=== PATIENT | female | born 1995 | race African-American/Black ===

== ENCOUNTER 2021-09-27 16:30 | Emergency (ER) | payer OTHER ==
--- NOTE | 2021-09-27 17:34 | XRAY Report ---
PROCEDURE: Chest 2 View X-Ray INDICATIONS: chest pain TECHNIQUE: 2 view(s) of the chest. COMPARISON: None. FINDINGS: Surgical changes and devices: None. Lungs and pleura: No pleural effusions or pneumothorax. Lungs are clear. Mediastinum: Mediastinal contours are normal. Heart size is near the upper limits of normal for por table technique. Bones and chest wall: No suspicious bony abnormalities. Soft tissues appear unremarkable. IMPRESSION: No acute cardiopulmonary process is seen. Reviewed by: Jesus Moss MD on 09/27/2021 4:33 PM [facility] Approved by: Jesus Moss MD on 09/27/2021 4:33 PM [facility] Station ID: [id number]
--- NOTE | 2021-09-27 18:10 | ED Physician Documentation ---
PD HPI CHEST PAIN - Stated complaint Stated Complaint: DIZZY/CHEST TIGHT/SOA/HEADACHE - Chief complaint Chief Complaint: Cardiac - History obtained from History obtained from: Patient - Additional information Additional information: Healthy 25-year-old woman got Covid last year and ever since she has had on and off chest pain. In a given week she probably has it half the days. It is a dull sternal pressure that is nonradiating. It is worse with walking but not with deep breathing. There is no association with eating. It was worse today, but otherwise the sensation was the same. She called the nurse advice line who advised evaluation in the emergency department. She denies recent travel, control use, history of DVT or PE, pedal edema or calf pain, possibility of current , personal or family history of ACS, cough or hemoptysis. 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 HEENT: None Psych: None Musculoskeletal: None Derm: Psoriasis Other Past Medical History: latent TB - Past Surgical History Past Surgical History: Yes HEENT: Tonsil/Adenoidectomy - Present Medications Home Medications: Ambulatory Orders Medication Instructions Recorded Confirmed Albuterol Sulfate [Proair Hfa 1 - 2 puffs INH Q4H PRN 09/27/21 09/27/21 Inhaler] - Allergies Allergies/Adverse Reactions: Allergies Allergy/AdvReac Type Severity Reaction Status Date / Time No Known Drug Allergies Allergy Verified 09/27/21 16:35 - Social History Does the pt smoke?: No Smoking Status: Former smoker Does the pt drink ETOH?: Yes Does the pt have substance abuse?: No - Immunizations Immunizations are current?: Yes PD ED PE NORMAL - Vitals Vital signs reviewed: Yes - General General: Alert and oriented X 3, No acute distress - HEENT HEENT: PERRL, EOMI - Neck Neck: Supple, no meningeal sign, No bony TTP - Cardiac Cardiac: RRR, No murmur - Respiratory Respiratory: No respiratory distress, Clear bilaterally - Abdomen Abdomen: Non tender - Back Back: No CVA TTP, No spinal TTP - Derm Derm: Normal color, Warm and dry - Extremities Extremities: No edema, No calf tenderness / cord - Neuro Neuro: Alert and oriented X 3, Normal speech Results - Vitals Vitals: Vital Signs - 24 hr 09/27/21 16:35 Temperature 36.2 C L Heart Rate 82 Respiratory 18 Rate Blood Pressure 134/85 H O2 Saturation 100 Oxygen O2 Source Room air - EKG (time done) 1638 Rate: Rate (enter#) (88) Rhythm: NSR [place]: Normal Intervals: Normal HI QRS: Normal Ischemia: Non specific changes. No: ST elevation c/w ischemia, ST depression - Labs Labs: Laboratory Tests 09/27/21 16:58 Troponin I High Sens < 2.3 L - Rads (name of study) 2 view chest x-ray is unremarkable Radiology: EMP read contemporaneously PD MEDICAL DECISION MAKING - ED course ED course: PE RC 0, heart 0 Departure - Departure Disposition: 01 Home, Self Care Clinical Impression: Atypical chest pain Condition: Good Record reviewed to determine appropriate education?: Yes Instructions: ED Chest Pain Atypical Unkn Cause Comments: EKG, troponin, chest x-ray all without evidence of serious pathology. Recommend with [place]. Return if worsening.
[2021-09-27 18:24] VITALS: BP 128/88
== END 2021-09-27 18:23 | disposition home or self-care (01) ==
LOC: ED 16:30
DX: R07.89 Other chest pain (principal); Z87.891 Personal history of nicotine dependence
CPT/HCPCS: 36415; 84484; 93005; 99283; 99284

== ENCOUNTER 2022-01-25 12:46 | Emergency (ER) | payer OTHER ==
--- NOTE | 2022-01-25 13:30 | ED Physician Documentation ---
PD HPI FOCAL NEURO - Stated complaint Stated Complaint: TUNNEL VISION IN LT EYE - Chief complaint Chief Complaint: Heent - History obtained from History obtained from: Patient - Additional information Additional information: 26yo female, [place]. No sig PMHx except preeclampsia. Starting 1 month ago developed moderate, 5/10 headache, left sided, neck radiating to head. Constant. Slight improvement with ibuprofen. 3 weeks of left eye tunnel vision. Central vision is maintained, blurry going out and becomes black. Also bilateral blacking out of vision with position chanes x 2 weeks and ppulsatile tinnitus x 2 weeks. Went to [place] yesterday and had left papilledema. They started acetazolamide at 125mg qday, and feeling same today. Review of Systems Ten Systems: 10 systems reviewed and negative Constitutional: denies: Fever, Chills Eyes: reports: Loss of vision, Decreased vision. 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 HEENT: None Psych: None Musculoskeletal: None Derm: Psoriasis - Past Surgical History Past Surgical History: Yes HEENT: Tonsil/Adenoidectomy - Present Medications Home Medications: Ambulatory Orders Medication Instructions Recorded Confirmed Albuterol Sulfate [Proair Hfa 1 - 2 puffs INH Q4H PRN 09/27/21 09/27/21 Inhaler] acetaZOLAMIDE [Diamox] 250 mg PO BID #60 tablet 01/25/22 - Allergies Allergies/Adverse Reactions: Allergies Allergy/AdvReac Type Severity Reaction Status Date / Time No Known Drug Allergies Allergy Verified 01/25/22 12:55 - Social History Does the pt smoke?: No Smoking Status: Never smoker Does the pt drink ETOH?: Yes Does the pt have substance abuse?: No - Immunizations Immunizations are current?: Yes PD ED PE NORMAL - Vitals Vital signs reviewed: Yes - General General: Alert and oriented X 3, No acute distress - HEENT HEENT: PERRL, EOMI - Neck Neck: Supple, no meningeal sign, No bony TTP - Cardiac Cardiac: RRR, No murmur - Respiratory Respiratory: No respiratory distress, Clear bilaterally - Abdomen Abdomen: Normal bowel sounds, Soft, Non tender - Back Back: No CVA TTP, No spinal TTP - Derm Derm: Normal color, Warm and dry - Extremities Extremities: No edema, No calf tenderness / cord - Neuro Neuro: Alert and oriented X 3, cabin worker 2-12 intact, No motor deficit, No sensory deficit, Normal speech Eye Opening: Spontaneous Motor: Obeys Commands Verbal: Oriented GCS Score: 15 - Psych Psych: Normal mood, Normal affect Results - Vitals Vitals: Vital Signs - 24 hr 01/25/22 01/25/22 01/25/22 12:49 15:00 17:00 Temperature 36.0 C L 36.6 C 36.7 C Heart Rate 77 63 75 Respiratory 16 16 16 Rate Blood Pressure 135/83 H 105/59 L 108/69 O2 Saturation 100 100 98 01/25/22 18:03 Temperature 36.6 C Heart Rate 80 Respiratory 16 Rate Blood Pressure 114/68 O2 Saturation 99 Oxygen O2 Source Room air - Labs Labs: Microbiology 01/25/22 14:15 Gram Stain - Final Cerebral Spinal Fluid CSF Culture - Preliminary CULTURE IN PROGRESS. RESULTS TO FOLLOW. Laboratory Tests 01/25/22 01/25/22 01/25/22 13:45 13:45 14:15 WBC 9.8 RBC 4.73 Hgb 12.8 Hct 40.4 MCV 85.4 MCH 27.1 MCHC 31.7 L RDW 14.0 Plt Count 306 MPV 9.3 Neut # (Auto) 4.2 Lymph # (Auto) 4.1 H Irwin # (Auto) 1.0 Eos # (Auto) 0.4 Baso # (Auto) 0.1 Absolute Nucleated RBC 0.00 Nucleated RBC % 0.0 Sodium 138 Potassium 4.0 Chloride 105 Carbon Dioxide 22 Anion Gap 11.0 BUN 16 Creatinine 1.1 H Estimated GFR (MDRD) 72 L Glucose 88 Calcium 9.6 CSF Color COLORLESS CSF Clarity CLEAR Xanthrochromic ABSENT CSF WBC 2 CSF RBC 3 H CSF Cell Count Tube # CSF TUBE# 3 CSF Glucose 61 CSF Total Protein 23 - Rads (name of study) MRI and MRV of the brain are normal Radiology: Final report received, EMP read contemporaneously Procedures - Lumbar Puncture Position: Laying left side Location: L3-L4 Anesthesia: Local lidocaine CSF: Clear (12ml CSF) Pressures: Opening Pressure (34 cm H2O), Closing Pressure (18cm H2O) Other: Sterile prep and drape, Patient tolerated well PD MEDICAL DECISION MAKING - ED course ED course: 26-year-old woman presents for work-up of presumed intracranial hypertension. MRI and MRV were normal. LP done with opening pressure of 35 and with about 12 mL of fluid out headache much better with a closing pressure of 18. Discussed case by phone with Dr. Ventura, Neurology at [facility] who recommends increasing Ricki tazolamide to 250 twice a day pending follow-up and could even go to 500 twice a day. She does need to follow-up with neurology and ophthalmology for assessment of visual cordova. Departure - Departure Disposition: 01 Home, Self Care Clinical Impression: Idiopathic intracranial hypertension Condition: Good Record reviewed to determine appropriate education?: Yes Prescriptions: acetaZOLAMIDE [Diamox] 250 mg PO BID #60 tablet Comments: You were seen today for work-up of idiopathic intracranial hypertension. The MRI and MRV of your brain were normal. We did a spinal tap, and the opening pressure was 35 which is high consistent with a diagnosis. After we removed about 12 mL of fluid the closing pressure was 18 which is back in the normal range. The spinal fluid and labs were normal. I discussed her case by phone with Dr. Ventura a rate neurologist at [facility] who recommended we increase the acetazolamide to 250 mg twice a day. I wrote a prescription and sent it to [facility] in [place]. You can just take 2 tablets of the 1 you have twice a day now until that runs out. [place] Ventura recommended formal referral to neurology but also op hthalmology (not optometry) for assessment of visual cordova. Forms: Activity restrictions Discharge Date/Time: 01/25/22 18:04
[2022-01-25 13:53] LABS: BASOPHILS # (AUTO) 0.1 10^3/uL (0.0-0.1); BASOPHILS % (AUTO) 0.8 %; EOSINOPHILS # (AUTO) 0.4 10^3/uL (0.0-0.7); EOSINOPHILS % (AUTO) 3.9 %; HCT - HEMATOCRIT 40.4 % (37.0-47.0); HGB - HEMOGLOBIN 12.8 g/dL (12.0-16.0); LYMPHOCYTES # (AUTO) 4.1 10^3/uL (1.5-3.5); LYMPHOCYTES % (AUTO) 41.4 %; MEAN CORPUSCULAR HEMOGLOBIN 27.1 pg (27.0-31.0); MEAN CORPUSCULAR HGB CONC 31.7 g/dL (32.0-36.0); MEAN CORPUSCULAR VOLUME 85.4 fL (81.0-99.0); MEAN PLATELET VOLUME 9.3 fL (7.9-10.8); MONOCYTES % (AUTO) 10.5 %; NEUTROPHILS # (AUTO) 4.2 10^3/uL (1.5-6.6); NEUTROPHILS % (AUTO) 43.2 %; PLT - PLATELET COUNT 306 10^3/uL (130-450); RED BLOOD COUNT 4.73 10^6/uL (4.20-5.40); WHITE BLOOD COUNT 9.8 x10^3/uL (4.8-10.8)
[2022-01-25 14:09] LABS: CALCIUM 9.6 mg/dL (8.5-10.3); CREATININE 1.1 mg/dL (0.4-1.0)
[2022-01-25 15:01] LABS: CSF - GLUCOSE 61 mg/dL (45-70); TOTAL PROTEIN,CSF 23 mg/dL (15-45)
[2022-01-25 15:03] LABS: CLARITY,CSF CLEAR (CLEAR); COLOR,CSF COLORLESS (COLORLESS); CSF TUBE # CSF TUBE# 3; CSF XANTHOCHROMIA ABSENT (ABSENT); RED BLOOD CELL,CSF 3 /mm^3 (0-1); WHITE BLOOD CELL,CSF 2 /mm^3 (0-5)
[2022-01-25] MEDS ORDERED: KETOROLAC 15 MG/ML VIAL IVP STA (15:23)
--- NOTE | 2022-01-25 17:04 | MRI Report ---
PROCEDURE: MRV-Brain Venous W/O INDICATIONS: headache/papilledema TECHNIQUE: Sagittal T1 spin echo through the brain. Coronal 2D [id number] MR venogram, with 3-dimensional m kbbkyk-iglxbmtev-zbkhueuhjp (MIP) reformats of the intracranial veins then performed. COMPARISON: MR brain 01/25/2022 FINDINGS: Image quality: Excellent. Veins: Sagittal, straight, transverse, and sigmoid sinuses all appear patent. Brain: Limited images through the brain parenchyma show no intracranial bleeds or mass effects. IMPRESSION: Venous system is patent. Reviewed by: Alanna Sanchez MD on 01/25/2022 5:02 PM PDT Approved by: Alanna Sanchez MD on 01/25/2022 5:02 PM PDT Station ID: [id number]
--- NOTE | 2022-01-25 17:04 | MRI Report ---
PROCEDURE: Brain W/O INDICATIONS: headache/papilledema TECHNIQUE: Noncontrast axial T1 spin echo, axial T2 fast spin echo, sagittal and axial FLAIR, coronal T2 fast sp in echo, axial gradient echo, axial diffusion and ADC through the brain. COMPARISON: MRV 01/25/2022. FINDINGS: Image quality: Excellent. CSF Spaces: Basal cisterns are patent. No extra-axial fluid collections. Ventricles are normal in size and shape. Brain: No intracranial masses or hemorrhage. [place]/white matter interface is normal. Brainstem appe ars normal. Diffusion-weighted images demonstrate no acute ischemic insult. No chronic ischemic ins ults. Normal intravascular flow voids are present. Skull and face: Calvarium has normal marrow signal. Orbits appear normal. Sinuses: Sinuses demonstrate minimal mucosal thickening. IMPRESSION: 1. No acute intracranial process. Reviewed by: Alanna Sanchez MD on 01/25/2022 5:02 PM PDT Approved by: Alanna Sanchez MD on 01/25/2022 5:02 PM PDT Station ID: [id number]
[2022-01-25 18:04] VITALS: BP 114/68
== END 2022-01-25 18:04 | disposition home or self-care (01) ==
LOC: ED 12:46
DX: G93.2 Benign intracranial hypertension (principal)
CPT/HCPCS: 36415; 62270; 80048; 82945; 84157; 85025; 87070; 87205; 89051; 99285

== ENCOUNTER 2022-01-31 18:23 | Emergency (ER) | payer OTHER ==
[2022-01-31] MEDS ORDERED: SODIUM CHLORIDE 0.9% 1,000 ML IV STA (18:53)
[2022-01-31] MEDS ORDERED: KETOROLAC 30 MG/ML VIAL IVP STA (18:53)
[2022-01-31 19:05] LABS: BASOPHILS # (AUTO) 0.1 10^3/uL (0.0-0.1); BASOPHILS % (AUTO) 0.8 %; EOSINOPHILS # (AUTO) 0.4 10^3/uL (0.0-0.7); EOSINOPHILS % (AUTO) 4.6 %; HGB - HEMOGLOBIN 12.9 g/dL (12.0-16.0); LYMPHOCYTES # (AUTO) 4.2 10^3/uL (1.5-3.5); LYMPHOCYTES % (AUTO) 43.5 %; MEAN CORPUSCULAR HEMOGLOBIN 27.2 pg (27.0-31.0); MEAN CORPUSCULAR HGB CONC 32.3 g/dL (32.0-36.0); MEAN CORPUSCULAR VOLUME 84.4 fL (81.0-99.0); MEAN PLATELET VOLUME 9.1 fL (7.9-10.8); MONOCYTES # (AUTO) 0.6 10^3/uL (0.0-1.0); MONOCYTES % (AUTO) 6.1 %; NEUTROPHILS # (AUTO) 4.3 10^3/uL (1.5-6.6); NEUTROPHILS % (AUTO) 44.9 %; PLT - PLATELET COUNT 329 10^3/uL (130-450); RED BLOOD COUNT 4.74 10^6/uL (4.20-5.40); RED CELL DISTRIBUTION WIDTH 14.1 % (12.0-15.0); WHITE BLOOD COUNT 9.6 x10^3/uL (4.8-10.8)
--- NOTE | 2022-01-31 19:08 | ED Physician Documentation ---
History of Present Illness - Stated complaint Stated Complaint: HEADACHE,BLURRED VISION - Chief complaint Chief Complaint: Neuro - History obtained from History obtained from: Patient - History of Present Illness Timing: Today Pain level max: 5 Pain level now: 3 - Additonal information Additional information: Patient is a 26-year-old female with a history of intracranial hypertension, recently started on acetazolamide. They increased her acetazolamide to 750 mg by mouth twice daily yesterday. Today she states she feels dizzy when she stands up, has a mild headache and feels like she is having confusion and difficulty walking. Nothing makes it better or worse. No fevers. No trauma. Review of Systems Ten Systems: 10 systems reviewed and negative Constitutional: denies: Fever, Chills Ears: denies: Ear pain Nose: denies: Rhinorrhea / runny nose, Congestion Throat: denies: Sore throat GI: denies: Nausea, Vomiting, Diarrhea Skin: denies: Rash Musculoskeletal: denies: Neck pain, Back pain Neurologic: reports: Generalized weakness, Confused. 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 HEENT: None Psych: None Musculoskeletal: None Derm: Psoriasis - Past Surgical History Past Surgical History: Yes HEENT: Tonsil/Adenoidectomy - Present Medications Home Medications: Ambulatory Orders Medication Instructions Recorded Confirmed Albuterol Sulfate [Proair Hfa 1 - 2 puffs INH Q4H PRN 09/27/21 01/31/22 Inhaler] acetaZOLAMIDE [Diamox] 750 mg PO BID 01/31/22 01/31/22 - Allergies Allergies/Adverse Reactions: Allergies Allergy/AdvReac Type Severity Reaction Status Date / Time No Known Drug Allergies Allergy Verified 01/31/22 18:27 - Social History Does the pt smoke?: No Smoking Status: Never smoker Does the pt drink ETOH?: Yes Does the pt have substance abuse?: No - Immunizations Immunizations are current?: Yes PD ED PE NORMAL - Vitals Vital signs reviewed: Yes - General General: Alert and oriented X 3, No acute distress, Well developed/nourished - HEENT HEENT: Atraumatic, PERRL, Moist mucous membranes, Pharynx benign - Neck Neck: Supple, no meningeal sign - Cardiac Cardiac: RRR, Strong equal pulses - Respiratory Respiratory: No respiratory distress, Clear bilaterally - Abdomen Abdomen: Soft, Non tender, Non distended - Derm Derm: Warm and dry - Extremities Extremities: No edema, No calf tenderness / cord - Neuro Neuro: Alert and oriented X 3, fruit checker 2-12 intact, No motor deficit, No sensory deficit, Normal speech Eye Opening: Spontaneous Motor: Obeys Commands Verbal: Oriented GCS Score: 15 - Psych Psych: Normal mood, Normal affect Results - Vitals Vitals: Vital Signs - 24 hr 01/31/22 01/31/22 01/31/22 18:27 18:33 20:11 Temperature 36.8 C 36.6 C 36.6 C Heart Rate 71 64 61 Respiratory 16 16 16 Rate Blood Pressure 128/88 H 123/85 H 121/80 O2 Saturation 99 100 100 Oxygen O2 Source Room air - Labs Labs: Laboratory Tests 01/31/22 01/31/22 19:00 19:00 WBC 9.6 RBC 4.74 Hgb 12.9 Hct 40.0 MCV 84.4 MCH 27.2 MCHC 32.3 RDW 14.1 Plt Count 329 MPV 9.1 Neut # (Auto) 4.3 Lymph # (Auto) 4.2 H Drew # (Auto) 0.6 Eos # (Auto) 0.4 Baso # (Auto) 0.1 Absolute Nucleated RBC 0.00 Nucleated RBC % 0.0 Sodium 136 Potassium 3.7 Chloride 106 Carbon Dioxide 20 L Anion Gap 10.0 BUN 20 Creatinine 1.1 H Estimated GFR (MDRD) 72 L Glucose 94 Calcium 8.9 Phosphorus 4.2 Magnesium 2.0 PD MEDICAL DECISION MAKING - ED course Complexity details: reviewed results, re-evaluated patient, considered differential, d/w patient ED course: No acute abnormalities currently. No electrolyte abnormalities. Feels better after Toradol and IV fluids. This could be a medication side effect as she is on a fairly high dose of acetazolamide. We will try decreasing the dose to see if it improves her symptoms. Ambulating well here. Headache resolved. We will have her follow-up with her neurologist and PCM for further care. No indication for repeat LP or imaging at this time. GCS 15. Patient counseled regarding signs and symptoms for which I believe and urgent re-evaluation would be necessary. Patient with good understanding of and agreement to plan and is comfortable going home at this time This document was made in part using voice recognition software. While efforts are made to proofread this document, sound alike and grammatical errors may occur. Departure - Departure Disposition: 01 Home, Self Care Clinical Impression: Medication side effect, Idiopathic intracranial hypertension Headache Qualifiers: Headache type: unspecified Headache chronicity pattern: acute headache Intractability: not intractable Qualified Code(s): R51.9 - Headache, unspecified Condition: Good Instructions: ED Cephalgia Unspecified Follow-Up: ANA NIELSON MD [Primary Care Provider] - Within 1 week Comments: Your symptoms may be due to the elevated dose of acetazolamide that you are on. Please decrease the dosage to 500 mg twice daily instead of 750 mg twice daily. Please contact your doctor tomorrow regarding your medications. Discharge Date/Time: 01/31/22 20:36
[2022-01-31 19:19] LABS: CALCIUM 8.9 mg/dL (8.5-10.3); CREATININE 1.1 mg/dL (0.4-1.0); PHOSPHORUS 4.2 mg/dL (2.5-4.6); POTASSIUM 3.7 mmol/L (3.5-5.0)
[2022-01-31 20:12] VITALS: BP 121/80
== END 2022-01-31 20:36 | disposition home or self-care (01) ==
LOC: ED 18:23
DX: R51.9 Headache, unspecified (principal); R42 Dizziness and giddiness; R41.0 Disorientation, unspecified; T50.2X5A Adverse effect of carbonic-anhydrase inhibitors, benzothiadiazides and other diuretics, initial encounter; G93.2 Benign intracranial hypertension
CPT/HCPCS: 36415; 80048; 83735; 84100; 85025; 96374; 99282

== ENCOUNTER 2022-02-22 11:26 | Outpatient (CLI) | payer OTHER | END 2022-02-22 11:27 | disposition EMS.NT | LOC: EMS 11:26 | DX: G43.909 Migraine, unspecified, not intractable, without status migrainosus (principal) ==

== ENCOUNTER 2022-03-21 09:28 | Outpatient (CLI) | payer OTHER ==
[2022-03-21] MEDS ORDERED: GADOBUTROL 10 MMOL/10 ML VIAL ONE (09:49)
[2022-03-21] MEDS ORDERED: GADOBUTROL 10 MMOL/10 ML VIAL IVP ONE (11:19)
--- NOTE | 2022-03-21 15:54 | MRI Report ---
PROCEDURE: Brain W/WO INDICATIONS: PAPILLEDEMA CONTRAST: IV CONTRAST: Gadavist ml: 9 TECHNIQUE: Noncontrast axial T1 spin echo, axial T2 fast spin echo, sagittal and axial FLAIR, coronal T2 fast sp in echo, axial gradient echo, axial diffusion and ADC through the brain. After the administration of contrast, axial and coronal T1 spin echo with fat saturation through the brain. COMPARISON: None. FINDINGS: There is a greater than expected volume of CSF within the bilateral optic nerve sheaths. There is mod erate flattening of the posterior globes. Subtle protrusion of the optic nerve heads indicate optic n erve edema. Mild enlargement of the sella turcica. Normal brain parenchymal signal intensity. No abnormal intracranial enhancement. Major intracranial v ascular flow related signal voids are maintained. No restricted diffusion. No unexpected intracranial susceptibility. IMPRESSION: Flattening of the posterior globes with increased CSF volume in the bilateral optic nerve sheaths estefany ng with subtle protrusion of the optic nerve heads. Findings are suggestive of idiopathic intracrania l hypertension. Reviewed by: Rosalino Lyle MD on 03/21/2022 3:53 PM PDT Approved by: Rosalino Lyle MD on 03/21/2022 3:53 PM PDT Station ID: [id number]
== END 2022-03-21 09:29 | disposition home or self-care (01) ==
LOC: DI 09:28
PROVIDERS: ATTEND Optometrist
DX: H47.10 Unspecified papilledema (principal); R94.02 Abnormal brain scan
CPT/HCPCS: 70553; A9585

== ENCOUNTER 2022-05-07 08:42 | Emergency (ER) | payer OTHER ==
[2022-05-07 09:36] LABS: BASOPHILS # (AUTO) 0.1 10^3/uL (0.0-0.1); EOSINOPHILS # (AUTO) 0.2 10^3/uL (0.0-0.7); EOSINOPHILS % (AUTO) 2.2 %; HCT - HEMATOCRIT 40.9 % (37.0-47.0); HGB - HEMOGLOBIN 13.3 g/dL (12.0-16.0); LYMPHOCYTES # (AUTO) 2.7 10^3/uL (1.5-3.5); LYMPHOCYTES % (AUTO) 25.9 %; MEAN CORPUSCULAR HEMOGLOBIN 27.8 pg (27.0-31.0); MEAN CORPUSCULAR HGB CONC 32.5 g/dL (32.0-36.0); MEAN CORPUSCULAR VOLUME 85.6 fL (81.0-99.0); MEAN PLATELET VOLUME 8.9 fL (7.9-10.8); MONOCYTES # (AUTO) 0.7 10^3/uL (0.0-1.0); MONOCYTES % (AUTO) 7.1 %; NEUTROPHILS # (AUTO) 6.7 10^3/uL (1.5-6.6); NEUTROPHILS % (AUTO) 63.5 %; PLT - PLATELET COUNT 309 10^3/uL (130-450); RED BLOOD COUNT 4.78 10^6/uL (4.20-5.40); RED CELL DISTRIBUTION WIDTH 13.5 % (12.0-15.0); WHITE BLOOD COUNT 10.5 x10^3/uL (4.8-10.8)
--- OUTSIDE RECORDS SUMMARY | 2022-05-07 09:37 | EXTERNAL MEDICAL SUMMARY RPT | Continuity of Care Document ---
:1995 Author Organization [facility] Address [address] [place] [address] Phone Allergies and Intolerances date description facility type (no date) No Known Drug Allergies [facility] (unkn own) Encounters No information. Functional Status No information. Immunizations No information. Medications date description facility Acetazolamide 250 MG Oral Tablet [facility] [id number] Nortriptyline 10 MG Oral Capsule [facility] +0000 rizatriptan 10 MG Oral Tablet [facility] [id number] Acetaminophen 300 MG / butalbital 50 M G / [facility] Caffeine 40 MG Oral Capsule Problems No information. Procedures date description facility + General Physician [facility] Results/Labs test date author facility value unit interpret ation Result panel 1 (unknown) (no (unknown) (unknown) (no value) (units (unk nown) date) unknown) (unknown) (no (unknown) (unknown) Date of Service: (units (unknown) date) 02/22/22 unknown) (unknown) (no (unknown) (unknown) (no value) (units (unk nown) date) unknown) (unknown) (no (unknown) (unknown) 02/22/22 13:15 (units (unknown) date) unknown) (unknown) (no (unknown) (unknown) 1 cap PO Q8H PRN (units (unknown) date) (Reason: pain) unknown) Qty: 14 0RF (unknown) (no (unknown) (unknown) 1,250 mg PO BID (units (unknown) date) 0RF unknown) (unknown) (no (unknown) (unknown) 10 mg PO Q2-4H (units (unknown) date) PRN (Reason: unknown) Migraine Headache) 0RF (unknown) (no (unknown) (unknown) 5 x 250 mg tab (units (unknown) date) twice daily unknown) (unknown) (no (unknown) (unknown) Admin: 02/22/22 (units (unknown) date) 13:19 Dose: 1,000 unknown) mls/hr (unknown) (no (unknown) (unknown) Admin: 02/22/22 (units (unknown) date) 15:55 Dose: 1,000 unknown) mls/hr (unknown) (no (unknown) (unknown) Allergies (units (unkn own) date) unknown) (unknown) (no (unknown) (unknown) Documented by: (units (unknown) date) AKINNEY unknown) (unknown) (no (unknown) (unknown) Documented by: (units (unknown) date) KSCHERE unknown) (unknown) (no (unknown) (unknown) ED Orders (units (unkn own) date) unknown) (unknown) (no (unknown) (unknown) Emergency Report (units (unknown) date) unknown) (unknown) (no (unknown) (unknown) Home Medications (units (unknown) date) unknown) (unknown) (no (unknown) (unknown) [facility] (units (unknown) date) [address] [place] [address] unknown) [place] [address] (unknown) (no (unknown) (unknown) Lab Results (units (un known) date) unknown) (unknown) (no (unknown) (unknown) Last Admin: (units (un known) date) 02/22/22 13:19 unknown) Dose: 15 mg (unknown) (no (unknown) (unknown) Last Admin: (units (un known) date) 02/22/22 13:19 unknown) Dose: 4 mg (unknown) (no (unknown) (unknown) Last Admin: (units (un known) date) 02/22/22 14:44 unknown) Dose: 1 each (unknown) (no (unknown) (unknown) Last Admin: (units (un known) date) 02/22/22 15:56 unknown) Dose: 4 mg (unknown) (no (unknown) (unknown) Last Infusion: (units (unknown) date) 02/22/22 14:44 unknown) Dose: 0 mls/hr (unknown) (no (unknown) (unknown) Last Infusion: (units (unknown) date) 02/22/22 17:02 unknown) Dose: 0 mls/hr (unknown) (no (unknown) (unknown) Point of Care (units ( unknown) date) Testing unknown) (unknown) (no (unknown) (unknown) Previous Rx's (units ( unknown) date) unknown) (unknown) (no (unknown) (unknown) Rx Instructions: (units (unknown) date) unknown) (unknown) (no (unknown) (unknown) See Rx (units (unkno wn) date) Instructions unknown) .ROUTE .COMPLEX 0RF (unknown) (no (unknown) (unknown) Stop: 02/22/22 (units (unknown) date) 13:09 unknown) (unknown) (no (unknown) (unknown) Stop: 02/22/22 (units (unknown) date) 14:07 unknown) (unknown) (no (unknown) (unknown) Stop: 02/22/22 (units (unknown) date) 14:25 unknown) (unknown) (no (unknown) (unknown) Stop: 02/22/22 (units (unknown) date) 15:31 unknown) (unknown) (no (unknown) (unknown) Stop: 02/22/22 (units (unknown) date) 16:29 unknown) (unknown) (no (unknown) (unknown) Urine Dip (units (unkn own) date) unknown) (unknown) (no (unknown) (unknown) Vital Signs - 8 (units (unknown) date) hr unknown) (unknown) (no (unknown) (unknown) do not exceed 2 (units (unknown) date) doses per 24 hrs unknown) (unknown) (no (unknown) (unknown) take 1 cap @ bed (units (unknown) date) time x7 days unknown) (started 02/21) then (unknown) (no (unknown) (unknown) take 2 cap @ (units (u nknown) date) bedtime x 7 days unknown) then (unknown) (no (unknown) (unknown) take 3 cap @ (units (u nknown) date) bedtime x 7 days unknown) (unknown) (no (unknown) (unknown) (no value) (units (unk nown) date) unknown) (unknown) (no (unknown) (unknown) 02/22/22 02/22/22 (units (unknown) date) Range/Units unknown) (unknown) (no (unknown) (unknown) 13:15 13:15 (units (un known) date) unknown) (unknown) (no (unknown) (unknown) acetazolamide 250 (units (unknown) date) mg Tablet unknown) (unknown) (no (unknown) (unknown) butalbital-acetam (units (unknown) date) inophen-caff unknown) [Fioricet] 50-300-40 mg capsule (unknown) (no (unknown) (unknown) nortriptyline 10 (units (unknown) date) mg Capsule unknown) (unknown) (no (unknown) (unknown) rizatriptan 10 mg (units (unknown) date) Tablet unknown) (unknown) (no (unknown) (unknown) 02/22/22 (units (unkno wn) date) unknown) (unknown) (no (unknown) (unknown) Headache, (units (unkn own) date) post-lumbar unknown) puncture (unknown) (no (unknown) (unknown) Medication (units (unk nown) date) Instructions unknown) Recorded (unknown) (no (unknown) (unknown) Medication (units (unk nown) date) Instructions unknown) Recorded Confirmed (unknown) (no (unknown) (unknown) inability to (units (u nknown) date) urinate or any unknown) new, worsening or concerning symptoms (unknown) (no (unknown) (unknown) not drive while (units (unknown) date) taking unknown) (unknown) (no (unknown) (unknown) (Fioricet) (units (unk nown) date) unknown) (unknown) (no (unknown) (unknown) *Continue to take (units (unknown) date) medications as unknown) directed (unknown) (no (unknown) (unknown) *Follow up with (units (unknown) date) your primary care unknown) provider in 2-3 days or call [phone] (unknown) (no (unknown) (unknown) *Return to ER if (units (unknown) date) you should have unknown) worsening headache, difficulty walking, fevers, (unknown) (no (unknown) (unknown) *What to do: At (units (unknown) date) this time increase unknown) fluids as tolerated. Lay down and rest as (unknown) (no (unknown) (unknown) *You have been (units (unknown) date) diagnosed with unknown) post lumbar puncture headache (unknown) (no (unknown) (unknown) 02/22/22 (units (unkno wn) date) unknown) (unknown) (no (unknown) (unknown) 02/22/22 13:15 (units (unknown) date) unknown) (unknown) (no (unknown) (unknown) [id number] (units (unkno wn) date) unknown) (unknown) (no (unknown) (unknown) 12 point review (units (unknown) date) of systems is unknown) negative except for those stated above and HPI (unknown) (no (unknown) (unknown) 12:42 02/22/22 (units (unknown) date) unknown) (unknown) (no (unknown) (unknown) 12:43 02/22/22 (units (unknown) date) unknown) (unknown) (no (unknown) (unknown) 12:44 (units (unkno wn) date) unknown) (unknown) (no (unknown) (unknown) 13:00 02/22/22 (units (unknown) date) unknown) (unknown) (no (unknown) (unknown) 13:30 02/22/22 (units (unknown) date) unknown) (unknown) (no (unknown) (unknown) 14:00 (units (unkno wn) date) unknown) (unknown) (no (unknown) (unknown) 14:30 02/22/22 (units (unknown) date) unknown) (unknown) (no (unknown) (unknown) 15:00 02/22/22 (units (unknown) date) unknown) (unknown) (no (unknown) (unknown) 15:30 (units (unkno wn) date) unknown) (unknown) (no (unknown) (unknown) 15:57 02/22/22 (units (unknown) date) unknown) (unknown) (no (unknown) (unknown) 16:00 02/22/22 (units (unknown) date) unknown) (unknown) (no (unknown) (unknown) 16:30 (units (unkno wn) date) unknown) (unknown) (no (unknown) (unknown) 50 mg-300 mg-40 (units (unknown) date) mg capsule unknown) (unknown) (no (unknown) (unknown) ABDOMEN: Soft, (units (unknown) date) nontender. unknown) Normoactive bowel sounds all 4 quadrants. No (unknown) (no (unknown) (unknown) ALT 13 (<35) (units (unknown) date) IU/L unknown) (unknown) (no (unknown) (unknown) AST 22 (14-36) (units (unknown) date) IU/L unknown) (unknown) (no (unknown) (unknown) Able to ambulate (units (unknown) date) but bent over due unknown) to severe headache. (unknown) (no (unknown) (unknown) Acetaminophen/But (units (unknown) date) albital/Caffeine unknown) (Butalb/Apap/Caffe ine 50/325/40 Tablet) 1 (unknown) (no (unknown) (unknown) Activity (units (unkno wn) date) Restrictions/Addit unknown) ional Instructions: (unknown) (no (unknown) (unknown) Age/Sex: 26 / F (units (unknown) date) unknown) (unknown) (no (unknown) (unknown) Albumin 4.5 (units ( unknown) date) (3.5-5.0) g/dL unknown) (unknown) (no (unknown) (unknown) Albumin/Globulin (units (unknown) date) Ratio 1.4 unknown) (1.0-2.8) (unknown) (no (unknown) (unknown) Alkaline (units (unkno wn) date) Phosphatase 53 unknown) (38-126) U/L (unknown) (no (unknown) (unknown) Allergy/AdvReac (units (unknown) date) Type Severity unknown) Reaction Status Date / Time (unknown) (no (unknown) (unknown) BUN 14 (7-17) (units (unknown) date) mg/dL unknown) (unknown) (no (unknown) (unknown) BUN/Creatinine (units (unknown) date) Ratio 12.5 unknown) (6-22) (unknown) (no (unknown) (unknown) Baso # (Auto) (units ( unknown) date) 100 (0-100) /uL unknown) (unknown) (no (unknown) (unknown) Baso % (Auto) (units ( unknown) date) 0.8 (0-2) % unknown) (unknown) (no (unknown) (unknown) Bedside Urine (units ( unknown) date) Bilirubin - unknown) Negative (unknown) (no (unknown) (unknown) Bedside Urine (units ( unknown) date) Glucose unknown) Negative (unknown) (no (unknown) (unknown) Bedside Urine (units ( unknown) date) Ketone - unknown) Negative (unknown) (no (unknown) (unknown) Bedside Urine (units ( unknown) date) Leukocytes - unknown) Negative (unknown) (no (unknown) (unknown) Bedside Urine (units ( unknown) date) Nitrite - unknown) Negative (unknown) (no (unknown) (unknown) Bedside Urine (units ( unknown) date) Occult Blood - unknown) Negative (unknown) (no (unknown) (unknown) Bedside Urine (units ( unknown) date) Protein - unknown) Negative (unknown) (no (unknown) (unknown) Bedside Urine (units ( unknown) date) Urobilinogen - unknown) Negative (unknown) (no (unknown) (unknown) Bedside Urine pH (units (unknown) date) 7.0 unknown) (unknown) (no (unknown) (unknown) Blood Pressure (units (unknown) date) 116/75 121/81 unknown) (unknown) (no (unknown) (unknown) Blood Pressure (units (unknown) date) 129/90 02/22/22 unknown) 12:42 (unknown) (no (unknown) (unknown) Blood Pressure (units (unknown) date) 117/74 116/64 unknown) 128/79 (unknown) (no (unknown) (unknown) Blood Pressure (units (unknown) date) 121/79 115/75 unknown) 117/72 (unknown) (no (unknown) (unknown) Blood Pressure (units (unknown) date) 129/90 129/90 unknown) (unknown) (no (unknown) (unknown) CARDIOVASCULAR: (units (unknown) date) Denies chest pain, unknown) palpitations, orthopnea, edema (unknown) (no (unknown) (unknown) CARDIOVASCULAR: (units (unknown) date) Regular rate and unknown) rhythm without murmurs, rubs or gallops. (unknown) (no (unknown) (unknown) CBC Auto Diff (units ( unknown) date) [Complete Blood unknown) Count AUTO DIFF] Stat (unknown) (no (unknown) (unknown) CMP (units (unkno wn) date) [Comprehensive unknown) Metabolic Panel] Stat (unknown) (no (unknown) (unknown) Calcium 9.4 (units ( unknown) date) (8.4-10.2) mg/dL unknown) (unknown) (no (unknown) (unknown) Carbon Dioxide (units (unknown) date) 20 L (22-32) unknown) mmol/L (unknown) (no (unknown) (unknown) Chief Complaint: (units (unknown) date) Headache unknown) (unknown) (no (unknown) (unknown) Chloride 111 H (units (unknown) date) (98-107) mmol/L unknown) (unknown) (no (unknown) (unknown) Clinical (units (unkno wn) date) Impression: unknown) (unknown) (no (unknown) (unknown) Course (units (unkno wn) date) unknown) (unknown) (no (unknown) (unknown) Creatinine 1.12 (units (unknown) date) H (0.52-1.04) unknown) mg/dL (unknown) (no (unknown) (unknown) : 1995 (units (unknown) date) Acct:[id number] unknown) (unknown) (no (unknown) (unknown) Departure (units (unkn own) date) unknown) (unknown) (no (unknown) (unknown) Discharge Plan (units (unknown) date) unknown) (unknown) (no (unknown) (unknown) Discontinued (units (u nknown) date) Medications unknown) (unknown) (no (unknown) (unknown) ER Physician: (units ( unknown) date) Melissa Walker unknown) D.O. (unknown) (no (unknown) (unknown) EXTREMITIES: (units (u nknown) date) Normal range of unknown) motion, no clubbing or edema. Neurovascularly (unknown) (no (unknown) (unknown) Eos # (Auto) 600 (units (unknown) date) H (0-450) /uL unknown) (unknown) (no (unknown) (unknown) Eos % (Auto) 5.6 (units (unknown) date) H (2-4) % unknown) (unknown) (no (unknown) (unknown) Esterase (units (unkno wn) date) unknown) (unknown) (no (unknown) (unknown) Estimated GFR > (units (unknown) date) 60 (>60) mL/min unknown) (unknown) (no (unknown) (unknown) Exam (units (unkno wn) date) unknown) (unknown) (no (unknown) (unknown) Fioricet 1 tablet (units (unknown) date) every 4 hours if unknown) needed--> this can cause drowsiness please do (unknown) (no (unknown) (unknown) GASTROINTESTINAL: (units (unknown) date) Denies nausea, unknown) vomiting, abdominal pain, diarrhea, (unknown) (no (unknown) (unknown) GENERAL: Alert (units (unknown) date) 26-year-old female unknown) appears severely uncomfortable. (unknown) (no (unknown) (unknown) GENERAL: Denies (units (unknown) date) chills, fatigue, unknown) malaise, fever, sweats, travel (unknown) (no (unknown) (unknown) : Denies (units (unkn own) date) dysuria, unknown) frequency, incontinence, hematuria, urinary retention, flank (unknown) (no (unknown) (unknown) General (units (unkno wn) date) unknown) (unknown) (no (unknown) (unknown) GenericComposite[ (units (unknown) date) Plt Count 297 unknown) (150-400) X10^3/uL ] (unknown) (no (unknown) (unknown) GenericComposite[ (units (unknown) date) RBC 4.92 unknown) (4.0-5.2) X10^6/uL ] (unknown) (no (unknown) (unknown) GenericComposite[ (units (unknown) date) WBC 10.6 unknown) (4.5-11.0) X10^3/uL ] (unknown) (no (unknown) (unknown) Globulin 3.2 (units (unknown) date) (1.7-4.1) g/dL unknown) (unknown) (no (unknown) (unknown) Glucose 93 (units (u nknown) date) (70-100) mg/dL unknown) (unknown) (no (unknown) (unknown) HEENT: Denies (units ( unknown) date) sinus pain, ear unknown) pain, sore throat, difficulty swallowing, neck (unknown) (no (unknown) (unknown) HEENT: Head (units (un known) date) atraumatic,EOMI, unknown) pupils reactive, face symmetric, moist mucous (unknown) (no (unknown) (unknown) HPI - Headache (units (unknown) date) unknown) (unknown) (no (unknown) (unknown) HPI Narrative: (units (unknown) date) unknown) (unknown) (no (unknown) (unknown) Hct 40.1 (units (unkn own) date) (36-46) % unknown) (unknown) (no (unknown) (unknown) Hgb 13.4 (units (unkn own) date) (12.0-16.0) g/dL unknown) (unknown) (no (unknown) (unknown) History of (units (unk nown) date) Present Illness unknown) (unknown) (no (unknown) (unknown) 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 (unknown) (no (unknown) (unknown) Initial Vital (units ( unknown) date) Signs unknown) (unknown) (no (unknown) (unknown) Initial Vital (units ( unknown) date) Signs: unknown) (unknown) (no (unknown) (unknown) Instructions: DI (units (unknown) date) for Post-Spinal unknown) Puncture Headache (unknown) (no (unknown) (unknown) Holger Hartley MD (units (unknown) date) [Primary Care unknown) Provider] - (unknown) (no (unknown) (unknown) Ketorolac (units (unkn own) date) Tromethamine unknown) (Ketorolac 30 Mg/Ml Vial) 15 mg IV NOW ONE (unknown) (no (unknown) (unknown) Lab Data (units (unkno wn) date) unknown) (unknown) (no (unknown) (unknown) Labs: (units (unkno wn) date) unknown) (unknown) (no (unknown) (unknown) Lymph # (Auto) (units (unknown) date) 3500 (4008-2802) unknown) /uL (unknown) (no (unknown) (unknown) Lymph % (Auto) (units (unknown) date) 33.0 (25-40) % unknown) (unknown) (no (unknown) (unknown) MCH 27.2 (units (unkn own) date) (26-34) PG unknown) (unknown) (no (unknown) (unknown) MCHC 33.3 (units (unk nown) date) (30-36) % unknown) (unknown) (no (unknown) (unknown) MCV 81.7 (units (unkn own) date) (80-100) fL unknown) (unknown) (no (unknown) (unknown) MDM - Headache (units (unknown) date) unknown) (unknown) (no (unknown) (unknown) MUSCULOSKELETAL: (units (unknown) date) Denies weakness, unknown) joint pain, or bony pain (unknown) (no (unknown) (unknown) Medical History (units (unknown) date) (Updated 02/22/22 unknown) @ 17:05 by Melissa Walker DO) (unknown) (no (unknown) (unknown) Migraine (units (unkno wn) date) unknown) (unknown) (no (unknown) (unknown) [place] # (Auto) (units ( unknown) date) 1100 H (0-900) unknown) /uL (unknown) (no (unknown) (unknown) [place] % (Auto) (units ( unknown) date) 10.6 (3-14) % unknown) (unknown) (no (unknown) (unknown) Morphine Sulfate (units (unknown) date) (Morphine 4 Mg/Ml unknown) Inj) 4 mg IV NOW ONE (unknown) (no (unknown) (unknown) NEUROLOGIC: See (units (unknown) date) HPI unknown) (unknown) (no (unknown) (unknown) NEUROLOGICAL: (units (u nknown) date) Alert and oriented unknown) x4.Normal speech. Cranial nerves II through XII (unknown) (no (unknown) (unknown) Narrative: (units (unk nown) date) unknown) (unknown) (no (unknown) (unknown) Neut # (Auto) (units ( unknown) date) 5300 (4474-7081) unknown) /uL (unknown) (no (unknown) (unknown) Neut % (Auto) (units ( unknown) date) 50.0 (50-75) % unknown) (unknown) (no (unknown) (unknown) New (units (unkno wn) date) unknown) (unknown) (no (unknown) (unknown) No Action (units (unkn own) date) unknown) (unknown) (no (unknown) (unknown) No Known Drug (units ( unknown) date) Allergies Allergy unknown) Verified 02/22/22 12:47 (unknown) (no (unknown) (unknown) Ondansetron HCl (units (unknown) date) (Ondansetron 4 unknown) Mg/2 Ml Inj) 4 mg IV NOW ONE (unknown) (no (unknown) (unknown) Ordered: (units (unkno wn) date) unknown) (unknown) (no (unknown) (unknown) Orders (units (unkno wn) date) unknown) (unknown) (no (unknown) (unknown) PSYCHIATRIC: No (units (unknown) date) concerning unknown) psychosocial issues. (unknown) (no (unknown) (unknown) Papilloedema, (units ( unknown) date) unspecified unknown) (unknown) (no (unknown) (unknown) Patient (units (o wn) date) Disposition: Home unknown) (unknown) (no (unknown) (unknown) Patient History (units (unknown) date) unknown) (unknown) (no (unknown) (unknown) Patient is a (units (un known) date) 26-year-old female unknown) history of intracranial hypertension status post (unknown) (no (unknown) (unknown) Patient: (units (o wn) date) Racheal Jerez unknown) MR#: [id number] (unknown) (no (unknown) (unknown) Potassium 3.8 (units (unknown) date) (3.4-5.1) mmol/L unknown) (unknown) (no (unknown) (unknown) Test (units (unknown) date) Results unknown) Negative (unknown) (no (unknown) (unknown) Prescriptions: (units (unknown) date) unknown) (unknown) (no (unknown) (unknown) Pulse Oximetry (units (unknown) date) unknown) (unknown) (no (unknown) (unknown) Pulse Oximetry (units (unknown) date) 100 99 unknown) (unknown) (no (unknown) (unknown) Pulse Oximetry (units (unknown) date) 100 99 100 unknown) (unknown) (no (unknown) (unknown) Pulse Oximetry 99 (units (unknown) date) unknown) (unknown) (no (unknown) (unknown) Pulse Rate (units (unk nown) date) unknown) (unknown) (no (unknown) (unknown) Pulse Rate 81 79 (units (unknown) date) unknown) (unknown) (no (unknown) (unknown) Pulse Rate 74 (units ( unknown) date) unknown) (unknown) (no (unknown) (unknown) Pulse Rate 80 82 (units (unknown) date) 78 unknown) (unknown) (no (unknown) (unknown) RDW 14.8 (units (unkn own) date) (11.6-14.8) % unknown) (unknown) (no (unknown) (unknown) RESPIRATORY: (units (u nknown) date) Breath sounds unknown) equal bilaterally, no wheezes rales or rhonchi. (unknown) (no (unknown) (unknown) RESPIRATORY: (units (u nknown) date) Denies dyspnea, unknown) cough, wheezing, hemoptysis, sputum. (unknown) (no (unknown) (unknown) Referrals: (units (unk nown) date) unknown) (unknown) (no (unknown) (unknown) Related Data (units (u nknown) date) unknown) (unknown) (no (unknown) (unknown) Respiratory Rate (units (unknown) date) unknown) (unknown) (no (unknown) (unknown) Respiratory Rate (units (unknown) date) 16 unknown) (unknown) (no (unknown) (unknown) Respiratory Rate (units (unknown) date) 18 unknown) (unknown) (no (unknown) (unknown) Result diagrams: (units (unknown) date) unknown) (unknown) (no (unknown) (unknown) Review of Systems (units (unknown) date) unknown) (unknown) (no (unknown) (unknown) SKIN: No rash, no (units (unknown) date) erythema, no unknown) pruritus (unknown) (no (unknown) (unknown) SKIN: Warm, dry, (units (unknown) date) no laceration, no unknown) petechiae, no rashes or lesions. (unknown) (no (unknown) (unknown) Signed By: (units (unk nown) date) unknown) (unknown) (no (unknown) (unknown) Smoking Status: (units (unknown) date) Never smoker unknown) (unknown) (no (unknown) (unknown) Smoking Status: (units (unknown) date) Never smoker unknown) (unknown) (no (unknown) (unknown) Snoring (units (unkno wn) date) unknown) (unknown) (no (unknown) (unknown) Social History (units (unknown) date) unknown) (unknown) (no (unknown) (unknown) Sodium 141 (units (u nknown) date) (137-145) mmol/L unknown) (unknown) (no (unknown) (unknown) Sodium Chloride (units (unknown) date) (Normal Saline unknown) 0.9%) 1,000 mls @ 1,000 mls/hr IV BOLUS ONE (unknown) (no (unknown) (unknown) Stated Complaint: (units (unknown) date) lumbar procedure unknown) yesterday, now headache (unknown) (no (unknown) (unknown) Substance Use (units ( unknown) date) Type: does not use unknown) (unknown) (no (unknown) (unknown) Temperature (units (un known) date) unknown) (unknown) (no (unknown) (unknown) Temperature (units (un known) date) 97.9 F unknown) (unknown) (no (unknown) (unknown) Time Seen by (units (u nknown) date) Provider: 02/22/22 unknown) 12:46 (unknown) (no (unknown) (unknown) Total Bilirubin (units (unknown) date) 0.3 (0.2-1.3) unknown) mg/dL (unknown) (no (unknown) (unknown) Total Protein (units ( unknown) date) 7.7 (6.3-8.2) unknown) g/dL (unknown) (no (unknown) (unknown) Urine Specific (units (unknown) date) [place] 1.015 unknown) (unknown) (no (unknown) (unknown) Vital Signs (units (un known) date) unknown) (unknown) (no (unknown) (unknown) Vital signs: (units (u nknown) date) unknown) (unknown) (no (unknown) (unknown) [Embedded Image (units (unknown) date) Not Available] unknown) (unknown) (no (unknown) (unknown) acetazolamide 250 (units (unknown) date) mg tablet 1,250 mg unknown) PO BID 02/22/22 02/22/22 (unknown) (no (unknown) (unknown) alcohol intake (units (unknown) date) frequency: 0-2 unknown) drinks per day (unknown) (no (unknown) (unknown) bladder habits. (units (unknown) date) She has not had unknown) any fever or chills. (unknown) (no (unknown) (unknown) butalbital-acetam (units (unknown) date) inophen-caffeine 1 unknown) cap PO Q8H PRN #14 cap 02/22/22 (unknown) (no (unknown) (unknown) constipation, (units ( unknown) date) melena. unknown) (unknown) (no (unknown) (unknown) each PO NOW ONE (units (unknown) date) unknown) (unknown) (no (unknown) (unknown) grossly intact. (units (unknown) date) Sensation in lower unknown) extremities intact moving all extremities. (unknown) (no (unknown) (unknown) guarding or (units (un known) date) rebound. unknown) (unknown) (no (unknown) (unknown) intact (units (unkno wn) date) unknown) (unknown) (no (unknown) (unknown) lumbar puncture (units (unknown) date) yesterday. She unknown) said this is the 2nd lumbar puncture she had 4 (unknown) (no (unknown) (unknown) membranes (units (unkn own) date) unknown) (unknown) (no (unknown) (unknown) needed (units (unkno wn) date) unknown) (unknown) (no (unknown) (unknown) nortriptyline 10 (units (unknown) date) mg capsule See Rx unknown) Instructions .ROUTE .COMPLEX 02/22/22 (unknown) (no (unknown) (unknown) numbness tingling (units (unknown) date) or weakness in her unknown) lower extremities. No changes in bowel or (unknown) (no (unknown) (unknown) pain (units (unkno wn) date) unknown) (unknown) (no (unknown) (unknown) pain. (units (unkno wn) date) unknown) (unknown) (no (unknown) (unknown) rizatriptan 10 mg (units (unknown) date) tablet 10 mg PO unknown) Q2-4H PRN 02/22/22 02/22/22 (unknown) (no (unknown) (unknown) this is a. She (units (unknown) date) said the 1st when unknown) she did not have any complications. However (unknown) (no (unknown) (unknown) today she (units (unkn own) date) presents with unknown) severe headache. It is better when she lies flat and (unknown) (no (unknown) (unknown) worse whenever (units (unknown) date) she stands or unknown) sits. She feels extremely nauseous. She has no Result panel 2 (unknown) (no (unknown) (unknown) (no value) (units (unk nown) date) unknown) (unknown) (no (unknown) (unknown) Date of Service: (units (unknown) date) 02/22/22 unknown) (unknown) (no (unknown) (unknown) (no value) (units (unk nown) date) unknown) (unknown) (no (unknown) (unknown) 02/22/22 13:15 (units (unknown) date) unknown) (unknown) (no (unknown) (unknown) 1 cap PO Q8H PRN (units (unknown) date) (Reason: pain) unknown) Qty: 14 0RF (unknown) (no (unknown) (unknown) 1,250 mg PO BID (units (unknown) date) 0RF unknown) (unknown) (no (unknown) (unknown) 10 mg PO Q2-4H (units (unknown) date) PRN (Reason: unknown) Migraine Headache) 0RF (unknown) (no (unknown) (unknown) 5 x 250 mg tab (units (unknown) date) twice daily unknown) (unknown) (no (unknown) (unknown) Admin: 02/22/22 (units (unknown) date) 13:19 Dose: 1,000 unknown) mls/hr (unknown) (no (unknown) (unknown) Admin: 02/22/22 (units (unknown) date) 15:55 Dose: 1,000 unknown) mls/hr (unknown) (no (unknown) (unknown) Allergies (units (unkn own) date) unknown) (unknown) (no (unknown) (unknown) Documented by: (units (unknown) date) AKINNEY unknown) (unknown) (no (unknown) (unknown) Documented by: (units (unknown) date) KSCHERE unknown) (unknown) (no (unknown) (unknown) ED Orders (units (unkn own) date) unknown) (unknown) (no (unknown) (unknown) Emergency Report (units (unknown) date) unknown) (unknown) (no (unknown) (unknown) Home Medications (units (unknown) date) unknown) (unknown) (no (unknown) (unknown) [facility] (units (unknown) date) [address] unknown) [place] [address] (unknown) (no (unknown) (unknown) Lab Results (units (un known) date) unknown) (unknown) (no (unknown) (unknown) Last Admin: (units (un known) date) 02/22/22 13:19 unknown) Dose: 15 mg (unknown) (no (unknown) (unknown) Last Admin: (units (un known) date) 02/22/22 13:19 unknown) Dose: 4 mg (unknown) (no (unknown) (unknown) Last Admin: (units (un known) date) 02/22/22 14:44 unknown) Dose: 1 each (unknown) (no (unknown) (unknown) Last Admin: (units (un known) date) 02/22/22 15:56 unknown) Dose: 4 mg (unknown) (no (unknown) (unknown) Last Infusion: (units (unknown) date) 02/22/22 14:44 unknown) Dose: 0 mls/hr (unknown) (no (unknown) (unknown) Last Infusion: (units (unknown) date) 02/22/22 17:02 unknown) Dose: 0 mls/hr (unknown) (no (unknown) (unknown) Point of Care (units ( unknown) date) Testing unknown) (unknown) (no (unknown) (unknown) Previous Rx's (units ( unknown) date) unknown) (unknown) (no (unknown) (unknown) Rx Instructions: (units (unknown) date) unknown) (unknown) (no (unknown) (unknown) See Rx (units (unkno wn) date) Instructions unknown) .ROUTE .COMPLEX 0RF (unknown) (no (unknown) (unknown) Stop: 02/22/22 (units (unknown) date) 13:09 unknown) (unknown) (no (unknown) (unknown) Stop: 02/22/22 (units (unknown) date) 14:07 unknown) (unknown) (no (unknown) (unknown) Stop: 02/22/22 (units (unknown) date) 14:25 unknown) (unknown) (no (unknown) (unknown) Stop: 02/22/22 (units (unknown) date) 15:31 unknown) (unknown) (no (unknown) (unknown) Stop: 02/22/22 (units (unknown) date) 16:29 unknown) (unknown) (no (unknown) (unknown) Urine Dip (units (unkn own) date) unknown) (unknown) (no (unknown) (unknown) Vital Signs - 8 (units (unknown) date) hr unknown) (unknown) (no (unknown) (unknown) do not exceed 2 (units (unknown) date) doses per 24 hrs unknown) (unknown) (no (unknown) (unknown) take 1 cap @ bed (units (unknown) date) time x7 days unknown) (started 02/21) then (unknown) (no (unknown) (unknown) take 2 cap @ (units (u nknown) date) bedtime x 7 days unknown) then (unknown) (no (unknown) (unknown) take 3 cap @ (units (u nknown) date) bedtime x 7 days unknown) (unknown) (no (unknown) (unknown) (no value) (units (unk nown) date) unknown) (unknown) (no (unknown) (unknown) 02/22/22 02/22/22 (units (unknown) date) Range/Units unknown) (unknown) (no (unknown) (unknown) 13:15 13:15 (units (un known) date) unknown) (unknown) (no (unknown) (unknown) acetazolamide 250 (units (unknown) date) mg Tablet unknown) (unknown) (no (unknown) (unknown) butalbital-acetam (units (unknown) date) inophen-caff unknown) [Fioricet] 50-300-40 mg capsule (unknown) (no (unknown) (unknown) nortriptyline 10 (units (unknown) date) mg Capsule unknown) (unknown) (no (unknown) (unknown) rizatriptan 10 mg (units (unknown) date) Tablet unknown) (unknown) (no (unknown) (unknown) 02/22/22 (units (unkno wn) date) unknown) (unknown) (no (unknown) (unknown) Headache, (units (unkn own) date) post-lumbar unknown) puncture (unknown) (no (unknown) (unknown) Medication (units (unk nown) date) Instructions unknown) Recorded (unknown) (no (unknown) (unknown) Medication (units (unk nown) date) Instructions unknown) Recorded Confirmed (unknown) (no (unknown) (unknown) inability to (units (u nknown) date) urinate or any unknown) new, worsening or concerning symptoms (unknown) (no (unknown) (unknown) not drive while (units (unknown) date) taking unknown) (unknown) (no (unknown) (unknown) (Fioricet) (units (unk nown) date) unknown) (unknown) (no (unknown) (unknown) *Continue to take (units (unknown) date) medications as unknown) directed (unknown) (no (unknown) (unknown) *Follow up with (units (unknown) date) your primary care unknown) provider in 2-3 days or call [phone] (unknown) (no (unknown) (unknown) *Return to ER if (units (unknown) date) you should have unknown) worsening headache, difficulty walking, fevers, (unknown) (no (unknown) (unknown) *What to do: At (units (unknown) date) this time increase unknown) fluids as tolerated. Lay down and rest as (unknown) (no (unknown) (unknown) *You have been (units (unknown) date) diagnosed with unknown) post lumbar puncture headache (unknown) (no (unknown) (unknown) 02/22/22 (units (unkno wn) date) unknown) (unknown) (no (unknown) (unknown) 02/22/22 13:15 (units (unknown) date) unknown) (unknown) (no (unknown) (unknown) [id number] (units (unkno wn) date) unknown) (unknown) (no (unknown) (unknown) 12 point review (units (unknown) date) of systems is unknown) negative except for those stated above and HPI (unknown) (no (unknown) (unknown) 12:42 02/22/22 (units (unknown) date) unknown) (unknown) (no (unknown) (unknown) 12:43 02/22/22 (units (unknown) date) unknown) (unknown) (no (unknown) (unknown) 12:44 (units (unkno wn) date) unknown) (unknown) (no (unknown) (unknown) 13:00 02/22/22 (units (unknown) date) unknown) (unknown) (no (unknown) (unknown) 13:30 02/22/22 (units (unknown) date) unknown) (unknown) (no (unknown) (unknown) 14:00 (units (unkno wn) date) unknown) (unknown) (no (unknown) (unknown) 14:30 02/22/22 (units (unknown) date) unknown) (unknown) (no (unknown) (unknown) 15:00 02/22/22 (units (unknown) date) unknown) (unknown) (no (unknown) (unknown) 15:30 (units (unkno wn) date) unknown) (unknown) (no (unknown) (unknown) 15:57 02/22/22 (units (unknown) date) unknown) (unknown) (no (unknown) (unknown) 16:00 02/22/22 (units (unknown) date) unknown) (unknown) (no (unknown) (unknown) 16:30 (units (unkno wn) date) unknown) (unknown) (no (unknown) (unknown) 17:00 (units (unkno wn) date) unknown) (unknown) (no (unknown) (unknown) 50 mg-300 mg-40 (units (unknown) date) mg capsule unknown) (unknown) (no (unknown) (unknown) ABDOMEN: Soft, (units (unknown) date) nontender. unknown) Normoactive bowel sounds all 4 quadrants. No (unknown) (no (unknown) (unknown) ALT 13 (<35) (units (unknown) date) IU/L unknown) (unknown) (no (unknown) (unknown) AST 22 (14-36) (units (unknown) date) IU/L unknown) (unknown) (no (unknown) (unknown) Able to ambulate (units (unknown) date) but bent over due unknown) to severe headache. (unknown) (no (unknown) (unknown) Acetaminophen/But (units (unknown) date) albital/Caffeine unknown) (Butalb/Apap/Caffe ine 50/325/40 Tablet) 1 (unknown) (no (unknown) (unknown) Activity (units (unkno wn) date) Restrictions/Addit unknown) ional Instructions: (unknown) (no (unknown) (unknown) Age/Sex: 26 / F (units (unknown) date) unknown) (unknown) (no (unknown) (unknown) Albumin 4.5 (units ( unknown) date) (3.5-5.0) g/dL unknown) (unknown) (no (unknown) (unknown) Albumin/Globulin (units (unknown) date) Ratio 1.4 unknown) (1.0-2.8) (unknown) (no (unknown) (unknown) Alkaline (units (unkno wn) date) Phosphatase 53 unknown) (38-126) U/L (unknown) (no (unknown) (unknown) Allergy/AdvReac (units (unknown) date) Type Severity unknown) Reaction Status Date / Time (unknown) (no (unknown) (unknown) BUN 14 (7-17) (units (unknown) date) mg/dL unknown) (unknown) (no (unknown) (unknown) BUN/Creatinine (units (unknown) date) Ratio 12.5 unknown) (6-22) (unknown) (no (unknown) (unknown) Baso # (Auto) (units ( unknown) date) 100 (0-100) /uL unknown) (unknown) (no (unknown) (unknown) Baso % (Auto) (units ( unknown) date) 0.8 (0-2) % unknown) (unknown) (no (unknown) (unknown) Bedside Urine (units ( unknown) date) Bilirubin - unknown) Negative (unknown) (no (unknown) (unknown) Bedside Urine (units ( unknown) date) Glucose unknown) Negative (unknown) (no (unknown) (unknown) Bedside Urine (units ( unknown) date) Ketone - unknown) Negative (unknown) (no (unknown) (unknown) Bedside Urine (units ( unknown) date) Leukocytes - unknown) Negative (unknown) (no (unknown) (unknown) Bedside Urine (units ( unknown) date) Nitrite - unknown) Negative (unknown) (no (unknown) (unknown) Bedside Urine (units ( unknown) date) Occult Blood - unknown) Negative (unknown) (no (unknown) (unknown) Bedside Urine (units ( unknown) date) Protein - unknown) Negative (unknown) (no (unknown) (unknown) Bedside Urine (units ( unknown) date) Urobilinogen - unknown) Negative (unknown) (no (unknown) (unknown) Bedside Urine pH (units (unknown) date) 7.0 unknown) (unknown) (no (unknown) (unknown) Blood Pressure (units (unknown) date) 116/75 121/81 unknown) (unknown) (no (unknown) (unknown) Blood Pressure (units (unknown) date) 129/90 02/22/22 unknown) 12:42 (unknown) (no (unknown) (unknown) Blood Pressure (units (unknown) date) 117/74 116/64 unknown) 128/79 (unknown) (no (unknown) (unknown) Blood Pressure (units (unknown) date) 121/79 115/75 unknown) 117/72 (unknown) (no (unknown) (unknown) Blood Pressure (units (unknown) date) 129/90 129/90 unknown) (unknown) (no (unknown) (unknown) Blood Pressure (units (unknown) date) 130/76 unknown) (unknown) (no (unknown) (unknown) CARDIOVASCULAR: (units (unknown) date) Denies chest pain, unknown) palpitations, orthopnea, edema (unknown) (no (unknown) (unknown) CARDIOVASCULAR: (units (unknown) date) Regular rate and unknown) rhythm without murmurs, rubs or gallops. (unknown) (no (unknown) (unknown) CBC Auto Diff (units ( unknown) date) [Complete Blood unknown) Count AUTO DIFF] Stat (unknown) (no (unknown) (unknown) CMP (units (unkno wn) date) [Comprehensive unknown) Metabolic Panel] Stat (unknown) (no (unknown) (unknown) Calcium 9.4 (units ( unknown) date) (8.4-10.2) mg/dL unknown) (unknown) (no (unknown) (unknown) Carbon Dioxide (units (unknown) date) 20 L (22-32) unknown) mmol/L (unknown) (no (unknown) (unknown) Chief Complaint: (units (unknown) date) Headache unknown) (unknown) (no (unknown) (unknown) Chloride 111 H (units (unknown) date) (98-107) mmol/L unknown) (unknown) (no (unknown) (unknown) Clinical (units (unkno wn) date) Impression: unknown) (unknown) (no (unknown) (unknown) Course (units (unkno wn) date) unknown) (unknown) (no (unknown) (unknown) Creatinine 1.12 (units (unknown) date) H (0.52-1.04) unknown) mg/dL (unknown) (no (unknown) (unknown) : 1995 (units (unknown) date) Acct:[id number] unknown) (unknown) (no (unknown) (unknown) Departure (units (unkn own) date) unknown) (unknown) (no (unknown) (unknown) Discharge Plan (units (unknown) date) unknown) (unknown) (no (unknown) (unknown) Discontinued (units (u nknown) date) Medications unknown) (unknown) (no (unknown) (unknown) ER Physician: (units ( unknown) date) Melissa Walker unknown) D.O. (unknown) (no (unknown) (unknown) EXTREMITIES: (units (u nknown) date) Normal range of unknown) motion, no clubbing or edema. Neurovascularly (unknown) (no (unknown) (unknown) Eos # (Auto) 600 (units (unknown) date) H (0-450) /uL unknown) (unknown) (no (unknown) (unknown) Eos % (Auto) 5.6 (units (unknown) date) H (2-4) % unknown) (unknown) (no (unknown) (unknown) Esterase (units (unkno wn) date) unknown) (unknown) (no (unknown) (unknown) Estimated GFR > (units (unknown) date) 60 (>60) mL/min unknown) (unknown) (no (unknown) (unknown) Exam (units (unkno wn) date) unknown) (unknown) (no (unknown) (unknown) Fioricet 1 tablet (units (unknown) date) every 4 hours if unknown) needed--> this can cause drowsiness please do (unknown) (no (unknown) (unknown) GASTROINTESTINAL: (units (unknown) date) Denies nausea, unknown) vomiting, abdominal pain, diarrhea, (unknown) (no (unknown) (unknown) GENERAL: Alert (units (unknown) date) 26-year-old female unknown) appears severely uncomfortable. (unknown) (no (unknown) (unknown) GENERAL: Denies (units (unknown) date) chills, fatigue, unknown) malaise, fever, sweats, travel (unknown) (no (unknown) (unknown) : Denies (units (unkn own) date) dysuria, unknown) frequency, incontinence, hematuria, urinary retention, flank (unknown) (no (unknown) (unknown) General (units (unkno wn) date) unknown) (unknown) (no (unknown) (unknown) GenericComposite[ (units (unknown) date) Plt Count 297 unknown) (150-400) X10^3/uL ] (unknown) (no (unknown) (unknown) GenericComposite[ (units (unknown) date) RBC 4.92 unknown) (4.0-5.2) X10^6/uL ] (unknown) (no (unknown) (unknown) GenericComposite[ (units (unknown) date) WBC 10.6 unknown) (4.5-11.0) X10^3/uL ] (unknown) (no (unknown) (unknown) Globulin 3.2 (units (unknown) date) (1.7-4.1) g/dL unknown) (unknown) (no (unknown) (unknown) Glucose 93 (units (u nknown) date) (70-100) mg/dL unknown) (unknown) (no (unknown) (unknown) HEENT: Denies (units ( unknown) date) sinus pain, ear unknown) pain, sore throat, difficulty swallowing, neck (unknown) (no (unknown) (unknown) HEENT: Head (units (un known) date) atraumatic,EOMI, unknown) pupils reactive, face symmetric, moist mucous (unknown) (no (unknown) (unknown) HPI - Headache (units (unknown) date) unknown) (unknown) (no (unknown) (unknown) HPI Narrative: (units (unknown) date) unknown) (unknown) (no (unknown) (unknown) Hct 40.1 (units (unkn own) date) (36-46) % unknown) (unknown) (no (unknown) (unknown) Hgb 13.4 (units (unkn own) date) (12.0-16.0) g/dL unknown) (unknown) (no (unknown) (unknown) History of (units (unk nown) date) Present Illness unknown) (unknown) (no (unknown) (unknown) 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 (unknown) (no (unknown) (unknown) Initial Vital (units ( unknown) date) Signs unknown) (unknown) (no (unknown) (unknown) Initial Vital (units ( unknown) date) Signs: unknown) (unknown) (no (unknown) (unknown) Instructions: DI (units (unknown) date) for Post-Spinal unknown) Puncture Headache (unknown) (no (unknown) (unknown) Holger Hartley MD (units (unknown) date) [Primary Care unknown) Provider] - (unknown) (no (unknown) (unknown) Ketorolac (units (unkn own) date) Tromethamine unknown) (Ketorolac 30 Mg/Ml Vial) 15 mg IV NOW ONE (unknown) (no (unknown) (unknown) Lab Data (units (unkno wn) date) unknown) (unknown) (no (unknown) (unknown) Labs: (units (unkno wn) date) unknown) (unknown) (no (unknown) (unknown) Lymph # (Auto) (units (unknown) date) 3500 ([id number]) unknown) /uL (unknown) (no (unknown) (unknown) Lymph % (Auto) (units (unknown) date) 33.0 (25-40) % unknown) (unknown) (no (unknown) (unknown) MCH 27.2 (units (unkn own) date) (26-34) PG unknown) (unknown) (no (unknown) (unknown) MCHC 33.3 (units (unk nown) date) (30-36) % unknown) (unknown) (no (unknown) (unknown) MCV 81.7 (units (unkn own) date) (80-100) fL unknown) (unknown) (no (unknown) (unknown) MDM - Headache (units (unknown) date) unknown) (unknown) (no (unknown) (unknown) MUSCULOSKELETAL: (units (unknown) date) Denies weakness, unknown) joint pain, or bony pain (unknown) (no (unknown) (unknown) Medical History (units (unknown) date) (Updated 02/22/22 unknown) @ 17:05 by Melissa Walker DO) (unknown) (no (unknown) (unknown) Migraine (units (unkno wn) date) unknown) (unknown) (no (unknown) (unknown) [place] # (Auto) (units ( unknown) date) 1100 H (0-900) unknown) /uL (unknown) (no (unknown) (unknown) [place] % (Auto) (units ( unknown) date) 10.6 (3-14) % unknown) (unknown) (no (unknown) (unknown) Morphine Sulfate (units (unknown) date) (Morphine 4 Mg/Ml unknown) Inj) 4 mg IV NOW ONE (unknown) (no (unknown) (unknown) NEUROLOGIC: See (units (unknown) date) HPI unknown) (unknown) (no (unknown) (unknown) NEUROLOGICAL: (units (u nknown) date) Alert and oriented unknown) x4.Normal speech. Cranial nerves II through XII (unknown) (no (unknown) (unknown) Narrative: (units (unk nown) date) unknown) (unknown) (no (unknown) (unknown) Neut # (Auto) (units ( unknown) date) 5300 ([id number]) unknown) /uL (unknown) (no (unknown) (unknown) Neut % (Auto) (units ( unknown) date) 50.0 (50-75) % unknown) (unknown) (no (unknown) (unknown) New (units (unkno wn) date) unknown) (unknown) (no (unknown) (unknown) No Action (units (unkn own) date) unknown) (unknown) (no (unknown) (unknown) No Known Drug (units ( unknown) date) Allergies Allergy unknown) Verified 02/22/22 12:47 (unknown) (no (unknown) (unknown) Ondansetron HCl (units (unknown) date) (Ondansetron 4 unknown) Mg/2 Ml Inj) 4 mg IV NOW ONE (unknown) (no (unknown) (unknown) Ordered: (units (unkno wn) date) unknown) (unknown) (no (unknown) (unknown) Orders (units (unkno wn) date) unknown) (unknown) (no (unknown) (unknown) PSYCHIATRIC: No (units (unknown) date) concerning unknown) psychosocial issues. (unknown) (no (unknown) (unknown) Papilloedema, (units ( unknown) date) unspecified unknown) (unknown) (no (unknown) (unknown) Patient (units (unkno wn) date) Disposition: Home unknown) (unknown) (no (unknown) (unknown) Patient History (units (unknown) date) unknown) (unknown) (no (unknown) (unknown) Patient is a (units (un known) date) 26-year-old female unknown) history of intracranial hypertension status post (unknown) (no (unknown) (unknown) Patient: (units (unkno wn) date) Racheal Jerez unknown) MR#: [id number] (unknown) (no (unknown) (unknown) Potassium 3.8 (units (unknown) date) (3.4-5.1) mmol/L unknown) (unknown) (no (unknown) (unknown) Test (units (unknown) date) Results unknown) Negative (unknown) (no (unknown) (unknown) Prescriptions: (units (unknown) date) unknown) (unknown) (no (unknown) (unknown) Pulse Oximetry (units (unknown) date) unknown) (unknown) (no (unknown) (unknown) Pulse Oximetry (units (unknown) date) 100 99 unknown) (unknown) (no (unknown) (unknown) Pulse Oximetry (units (unknown) date) 100 unknown) (unknown) (no (unknown) (unknown) Pulse Oximetry (units (unknown) date) 100 99 100 unknown) (unknown) (no (unknown) (unknown) Pulse Oximetry 99 (units (unknown) date) unknown) (unknown) (no (unknown) (unknown) Pulse Rate (units (unk nown) date) unknown) (unknown) (no (unknown) (unknown) Pulse Rate 81 79 (units (unknown) date) unknown) (unknown) (no (unknown) (unknown) Pulse Rate 73 (units ( unknown) date) unknown) (unknown) (no (unknown) (unknown) Pulse Rate 74 (units ( unknown) date) unknown) (unknown) (no (unknown) (unknown) Pulse Rate 80 82 (units (unknown) date) 78 unknown) (unknown) (no (unknown) (unknown) RDW 14.8 (units (unkn own) date) (11.6-14.8) % unknown) (unknown) (no (unknown) (unknown) RESPIRATORY: (units (u nknown) date) Breath sounds unknown) equal bilaterally, no wheezes rales or rhonchi. (unknown) (no (unknown) (unknown) RESPIRATORY: (units (u nknown) date) Denies dyspnea, unknown) cough, wheezing, hemoptysis, sputum. (unknown) (no (unknown) (unknown) Referrals: (units (unk nown) date) unknown) (unknown) (no (unknown) (unknown) Related Data (units (u nknown) date) unknown) (unknown) (no (unknown) (unknown) Respiratory Rate (units (unknown) date) unknown) (unknown) (no (unknown) (unknown) Respiratory Rate (units (unknown) date) 16 unknown) (unknown) (no (unknown) (unknown) Respiratory Rate (units (unknown) date) 18 unknown) (unknown) (no (unknown) (unknown) Respiratory Rate (units (unknown) date) 16 unknown) (unknown) (no (unknown) (unknown) Result diagrams: (units (unknown) date) unknown) (unknown) (no (unknown) (unknown) Review of Systems (units (unknown) date) unknown) (unknown) (no (unknown) (unknown) SKIN: No rash, no (units (unknown) date) erythema, no unknown) pruritus (unknown) (no (unknown) (unknown) SKIN: Warm, dry, (units (unknown) date) no laceration, no unknown) petechiae, no rashes or lesions. (unknown) (no (unknown) (unknown) Signed By: (units (unk nown) date) unknown) (unknown) (no (unknown) (unknown) Smoking Status: (units (unknown) date) Never smoker unknown) (unknown) (no (unknown) (unknown) Smoking Status: (units (unknown) date) Never smoker unknown) (unknown) (no (unknown) (unknown) Snoring (units (unkno wn) date) unknown) (unknown) (no (unknown) (unknown) Social History (units (unknown) date) unknown) (unknown) (no (unknown) (unknown) Sodium 141 (units (u nknown) date) (137-145) mmol/L unknown) (unknown) (no (unknown) (unknown) Sodium Chloride (units (unknown) date) (Normal Saline unknown) 0.9%) 1,000 mls @ 1,000 mls/hr IV BOLUS ONE (unknown) (no (unknown) (unknown) Stand Alone (units (un known) date) Forms: Work unknown) Release Note (unknown) (no (unknown) (unknown) Stated Complaint: (units (unknown) date) lumbar procedure unknown) yesterday, now headache (unknown) (no (unknown) (unknown) Substance Use (units ( unknown) date) Type: does not use unknown) (unknown) (no (unknown) (unknown) Temperature (units (un known) date) unknown) (unknown) (no (unknown) (unknown) Temperature (units (un known) date) 97.9 F unknown) (unknown) (no (unknown) (unknown) Temperature 98.0 (units (unknown) date) F unknown) (unknown) (no (unknown) (unknown) Time Seen by (units (u nknown) date) Provider: 02/22/22 unknown) 12:46 (unknown) (no (unknown) (unknown) Total Bilirubin (units (unknown) date) 0.3 (0.2-1.3) unknown) mg/dL (unknown) (no (unknown) (unknown) Total Protein (units ( unknown) date) 7.7 (6.3-8.2) unknown) g/dL (unknown) (no (unknown) (unknown) Urine Specific (units (unknown) date) [place] 1.015 unknown) (unknown) (no (unknown) (unknown) Vital Signs (units (un known) date) unknown) (unknown) (no (unknown) (unknown) Vital signs: (units (u nknown) date) unknown) (unknown) (no (unknown) (unknown) [Embedded Image (units (unknown) date) Not Available] unknown) (unknown) (no (unknown) (unknown) acetazolamide 250 (units (unknown) date) mg tablet 1,250 mg unknown) PO BID 02/22/22 02/22/22 (unknown) (no (unknown) (unknown) alcohol intake (units (unknown) date) frequency: 0-2 unknown) drinks per day (unknown) (no (unknown) (unknown) bladder habits. (units (unknown) date) She has not had unknown) any fever or chills. (unknown) (no (unknown) (unknown) butalbital-acetam (units (unknown) date) inophen-caffeine 1 unknown) cap PO Q8H PRN #14 cap 02/22/22 (unknown) (no (unknown) (unknown) constipation, (units ( unknown) date) melena. unknown) (unknown) (no (unknown) (unknown) each PO NOW ONE (units (unknown) date) unknown) (unknown) (no (unknown) (unknown) grossly intact. (units (unknown) date) Sensation in lower unknown) extremities intact moving all extremities. (unknown) (no (unknown) (unknown) guarding or (units (un known) date) rebound. unknown) (unknown) (no (unknown) (unknown) intact (units (unkno wn) date) unknown) (unknown) (no (unknown) (unknown) lumbar puncture (units (unknown) date) yesterday. She unknown) said this is the 2nd lumbar puncture she had 4 (unknown) (no (unknown) (unknown) membranes (units (unkn own) date) unknown) (unknown) (no (unknown) (unknown) needed (units (unkno wn) date) unknown) (unknown) (no (unknown) (unknown) nortriptyline 10 (units (unknown) date) mg capsule See Rx unknown) Instructions .ROUTE .COMPLEX 02/22/22 (unknown) (no (unknown) (unknown) numbness tingling (units (unknown) date) or weakness in her unknown) lower extremities. No changes in bowel or (unknown) (no (unknown) (unknown) pain (units (unkno wn) date) unknown) (unknown) (no (unknown) (unknown) pain. (units (unkno wn) date) unknown) (unknown) (no (unknown) (unknown) rizatriptan 10 mg (units (unknown) date) tablet 10 mg PO unknown) Q2-4H PRN 02/22/22 02/22/22 (unknown) (no (unknown) (unknown) this is a. She (units (unknown) date) said the 1st when unknown) she did not have any complications. However (unknown) (no (unknown) (unknown) today she (units (unkn own) date) presents with unknown) severe headache. It is better when she lies flat and (unknown) (no (unknown) (unknown) worse whenever (units (unknown) date) she stands or unknown) sits. She feels extremely nauseous. She has no Result panel 3 (unknown) (no (unknown) (unknown) (no value) (units (unk nown) date) unknown) (unknown) (no (unknown) (unknown) Date of Service: (units (unknown) date) 02/22/22 unknown) (unknown) (no (unknown) (unknown) (no value) (units (unk nown) date) unknown) (unknown) (no (unknown) (unknown) <Electronically (units (unknown) date) signed by Melissa Walker D.O.> (unknown) (no (unknown) (unknown) 02/22/22 13:15 (units (unknown) date) unknown) (unknown) (no (unknown) (unknown) 02/22/22 1901 (units ( unknown) date) unknown) (unknown) (no (unknown) (unknown) 1 cap PO Q8H PRN (units (unknown) date) (Reason: pain) unknown) Qty: 14 0RF (unknown) (no (unknown) (unknown) 1,250 mg PO BID (units (unknown) date) 0RF unknown) (unknown) (no (unknown) (unknown) 10 mg PO Q2-4H (units (unknown) date) PRN (Reason: unknown) Migraine Headache) 0RF (unknown) (no (unknown) (unknown) 5 x 250 mg tab (units (unknown) date) twice daily unknown) (unknown) (no (unknown) (unknown) Admin: 02/22/22 (units (unknown) date) 13:19 Dose: 1,000 unknown) mls/hr (unknown) (no (unknown) (unknown) Admin: 02/22/22 (units (unknown) date) 15:55 Dose: 1,000 unknown) mls/hr (unknown) (no (unknown) (unknown) Allergies (units (unkn own) date) unknown) (unknown) (no (unknown) (unknown) Documented by: (units (unknown) date) AKINNEY unknown) (unknown) (no (unknown) (unknown) Documented by: (units (unknown) date) KSCHERE unknown) (unknown) (no (unknown) (unknown) ED Orders (units (unkn own) date) unknown) (unknown) (no (unknown) (unknown) Emergency Report (units (unknown) date) unknown) (unknown) (no (unknown) (unknown) Home Medications (units (unknown) date) unknown) (unknown) (no (unknown) (unknown) [facility] (units (unknown) date) [address] unknown) [place] [address] (unknown) (no (unknown) (unknown) Lab Results (units (un known) date) unknown) (unknown) (no (unknown) (unknown) Last Admin: (units (un known) date) 02/22/22 13:19 unknown) Dose: 15 mg (unknown) (no (unknown) (unknown) Last Admin: (units (un known) date) 02/22/22 13:19 unknown) Dose: 4 mg (unknown) (no (unknown) (unknown) Last Admin: (units (un known) date) 02/22/22 14:44 unknown) Dose: 1 each (unknown) (no (unknown) (unknown) Last Admin: (units (un known) date) 02/22/22 15:56 unknown) Dose: 4 mg (unknown) (no (unknown) (unknown) Last Infusion: (units (unknown) date) 02/22/22 14:44 unknown) Dose: 0 mls/hr (unknown) (no (unknown) (unknown) Last Infusion: (units (unknown) date) 02/22/22 17:02 unknown) Dose: 0 mls/hr (unknown) (no (unknown) (unknown) Point of Care (units ( unknown) date) Testing unknown) (unknown) (no (unknown) (unknown) Previous Rx's (units ( unknown) date) unknown) (unknown) (no (unknown) (unknown) Rx Instructions: (units (unknown) date) unknown) (unknown) (no (unknown) (unknown) See Rx (units (unkno wn) date) Instructions unknown) .ROUTE .COMPLEX 0RF (unknown) (no (unknown) (unknown) Stop: 02/22/22 (units (unknown) date) 13:09 unknown) (unknown) (no (unknown) (unknown) Stop: 02/22/22 (units (unknown) date) 14:07 unknown) (unknown) (no (unknown) (unknown) Stop: 02/22/22 (units (unknown) date) 14:25 unknown) (unknown) (no (unknown) (unknown) Stop: 02/22/22 (units (unknown) date) 15:31 unknown) (unknown) (no (unknown) (unknown) Stop: 02/22/22 (units (unknown) date) 16:29 unknown) (unknown) (no (unknown) (unknown) Urine Dip (units (unkn own) date) unknown) (unknown) (no (unknown) (unknown) Vital Signs - 8 (units (unknown) date) hr unknown) (unknown) (no (unknown) (unknown) do not exceed 2 (units (unknown) date) doses per 24 hrs unknown) (unknown) (no (unknown) (unknown) take 1 cap @ bed (units (unknown) date) time x7 days unknown) (started 02/21) then (unknown) (no (unknown) (unknown) take 2 cap @ (units (u nknown) date) bedtime x 7 days unknown) then (unknown) (no (unknown) (unknown) take 3 cap @ (units (u nknown) date) bedtime x 7 days unknown) (unknown) (no (unknown) (unknown) (no value) (units (unk nown) date) unknown) (unknown) (no (unknown) (unknown) 02/22/22 02/22/22 (units (unknown) date) Range/Units unknown) (unknown) (no (unknown) (unknown) 13:15 13:15 (units (un known) date) unknown) (unknown) (no (unknown) (unknown) acetazolamide 250 (units (unknown) date) mg Tablet unknown) (unknown) (no (unknown) (unknown) butalbital-acetam (units (unknown) date) inophen-caff unknown) [Fioricet] 50-300-40 mg capsule (unknown) (no (unknown) (unknown) nortriptyline 10 (units (unknown) date) mg Capsule unknown) (unknown) (no (unknown) (unknown) rizatriptan 10 mg (units (unknown) date) Tablet unknown) (unknown) (no (unknown) (unknown) 02/22/22 (units (unkno wn) date) unknown) (unknown) (no (unknown) (unknown) Headache, (units (unkn own) date) post-lumbar unknown) puncture (unknown) (no (unknown) (unknown) Medication (units (unk nown) date) Instructions unknown) Recorded (unknown) (no (unknown) (unknown) Medication (units (unk nown) date) Instructions unknown) Recorded Confirmed (unknown) (no (unknown) (unknown) She is finally (units (unknown) date) able to sit up his unknown) in ambulate to the bathroom. She says it is (unknown) (no (unknown) (unknown) inability to (units (u nknown) date) urinate or any unknown) new, worsening or concerning symptoms (unknown) (no (unknown) (unknown) not drive while (units (unknown) date) taking unknown) (unknown) (no (unknown) (unknown) (Fioricet) (units (unk nown) date) unknown) (unknown) (no (unknown) (unknown) *Continue to take (units (unknown) date) medications as unknown) directed (unknown) (no (unknown) (unknown) *Follow up with (units (unknown) date) your primary care unknown) provider in 2-3 days or call [phone] (unknown) (no (unknown) (unknown) *Return to ER if (units (unknown) date) you should have unknown) worsening headache, difficulty walking, fevers, (unknown) (no (unknown) (unknown) *What to do: At (units (unknown) date) this time increase unknown) fluids as tolerated. Lay down and rest as (unknown) (no (unknown) (unknown) *You have been (units (unknown) date) diagnosed with unknown) post lumbar puncture headache (unknown) (no (unknown) (unknown) 02/22/22 (units (unkno wn) date) unknown) (unknown) (no (unknown) (unknown) 02/22/22 13:15 (units (unknown) date) unknown) (unknown) (no (unknown) (unknown) [id number] (units (unkno wn) date) unknown) (unknown) (no (unknown) (unknown) 12 point review (units (unknown) date) of systems is unknown) negative except for those stated above and HPI (unknown) (no (unknown) (unknown) 12:42 02/22/22 (units (unknown) date) unknown) (unknown) (no (unknown) (unknown) 12:43 02/22/22 (units (unknown) date) unknown) (unknown) (no (unknown) (unknown) 12:44 (units (unkno wn) date) unknown) (unknown) (no (unknown) (unknown) 13:00 02/22/22 (units (unknown) date) unknown) (unknown) (no (unknown) (unknown) 13:30 02/22/22 (units (unknown) date) unknown) (unknown) (no (unknown) (unknown) 14:00 (units (unkno wn) date) unknown) (unknown) (no (unknown) (unknown) 14:30 02/22/22 (units (unknown) date) unknown) (unknown) (no (unknown) (unknown) 15:00 02/22/22 (units (unknown) date) unknown) (unknown) (no (unknown) (unknown) 15:30 (units (unkno wn) date) unknown) (unknown) (no (unknown) (unknown) 15:57 02/22/22 (units (unknown) date) unknown) (unknown) (no (unknown) (unknown) 16:00 02/22/22 (units (unknown) date) unknown) (unknown) (no (unknown) (unknown) 16:30 (units (unkno wn) date) unknown) (unknown) (no (unknown) (unknown) 17:00 (units (unkno wn) date) unknown) (unknown) (no (unknown) (unknown) 50 mg-300 mg-40 (units (unknown) date) mg capsule unknown) (unknown) (no (unknown) (unknown) ABDOMEN: Soft, (units (unknown) date) nontender. unknown) Normoactive bowel sounds all 4 quadrants. No (unknown) (no (unknown) (unknown) ALT 13 (<35) (units (unknown) date) IU/L unknown) (unknown) (no (unknown) (unknown) AST 22 (14-36) (units (unknown) date) IU/L unknown) (unknown) (no (unknown) (unknown) Able to ambulate (units (unknown) date) but bent over due unknown) to severe headache. (unknown) (no (unknown) (unknown) Acetaminophen/But (units (unknown) date) albital/Caffeine unknown) (Butalb/Apap/Caffe ine 50/325/40 Tablet) 1 (unknown) (no (unknown) (unknown) Activity (units (unkno wn) date) Restrictions/Addit unknown) ional Instructions: (unknown) (no (unknown) (unknown) Age/Sex: 26 / F (units (unknown) date) unknown) (unknown) (no (unknown) (unknown) Albumin 4.5 (units ( unknown) date) (3.5-5.0) g/dL unknown) (unknown) (no (unknown) (unknown) Albumin/Globulin (units (unknown) date) Ratio 1.4 unknown) (1.0-2.8) (unknown) (no (unknown) (unknown) Alkaline (units (unkno wn) date) Phosphatase 53 unknown) (38-126) U/L (unknown) (no (unknown) (unknown) Allergy/AdvReac (units (unknown) date) Type Severity unknown) Reaction Status Date / Time (unknown) (no (unknown) (unknown) BUN 14 (7-17) (units (unknown) date) mg/dL unknown) (unknown) (no (unknown) (unknown) BUN/Creatinine (units (unknown) date) Ratio 12.5 unknown) (6-22) (unknown) (no (unknown) (unknown) Baso # (Auto) (units ( unknown) date) 100 (0-100) /uL unknown) (unknown) (no (unknown) (unknown) Baso % (Auto) (units ( unknown) date) 0.8 (0-2) % unknown) (unknown) (no (unknown) (unknown) Bedside Urine (units ( unknown) date) Bilirubin - unknown) Negative (unknown) (no (unknown) (unknown) Bedside Urine (units ( unknown) date) Glucose unknown) Negative (unknown) (no (unknown) (unknown) Bedside Urine (units ( unknown) date) Ketone - unknown) Negative (unknown) (no (unknown) (unknown) Bedside Urine (units ( unknown) date) Leukocytes - unknown) Negative (unknown) (no (unknown) (unknown) Bedside Urine (units ( unknown) date) Nitrite - unknown) Negative (unknown) (no (unknown) (unknown) Bedside Urine (units ( unknown) date) Occult Blood - unknown) Negative (unknown) (no (unknown) (unknown) Bedside Urine (units ( unknown) date) Protein - unknown) Negative (unknown) (no (unknown) (unknown) Bedside Urine (units ( unknown) date) Urobilinogen - unknown) Negative (unknown) (no (unknown) (unknown) Bedside Urine pH (units (unknown) date) 7.0 unknown) (unknown) (no (unknown) (unknown) Blood Pressure (units (unknown) date) 116/75 121/81 unknown) (unknown) (no (unknown) (unknown) Blood Pressure (units (unknown) date) 129/90 02/22/22 unknown) 12:42 (unknown) (no (unknown) (unknown) Blood Pressure (units (unknown) date) 117/74 116/64 unknown) 128/79 (unknown) (no (unknown) (unknown) Blood Pressure (units (unknown) date) 121/79 115/75 unknown) 117/72 (unknown) (no (unknown) (unknown) Blood Pressure (units (unknown) date) 129/90 129/90 unknown) (unknown) (no (unknown) (unknown) Blood Pressure (units (unknown) date) 130/76 unknown) (unknown) (no (unknown) (unknown) CARDIOVASCULAR: (units (unknown) date) Denies chest pain, unknown) palpitations, orthopnea, edema (unknown) (no (unknown) (unknown) CARDIOVASCULAR: (units (unknown) date) Regular rate and unknown) rhythm without murmurs, rubs or gallops. (unknown) (no (unknown) (unknown) CBC Auto Diff (units ( unknown) date) [Complete Blood unknown) Count AUTO DIFF] Stat (unknown) (no (unknown) (unknown) CMP (units (unkno wn) date) [Comprehensive unknown) Metabolic Panel] Stat (unknown) (no (unknown) (unknown) Calcium 9.4 (units ( unknown) date) (8.4-10.2) mg/dL unknown) (unknown) (no (unknown) (unknown) Carbon Dioxide (units (unknown) date) 20 L (22-32) unknown) mmol/L (unknown) (no (unknown) (unknown) Chief Complaint: (units (unknown) date) Headache unknown) (unknown) (no (unknown) (unknown) Chloride 111 H (units (unknown) date) (98-107) mmol/L unknown) (unknown) (no (unknown) (unknown) Clinical (units (unkno wn) date) Impression: unknown) (unknown) (no (unknown) (unknown) Course (units (unkno wn) date) unknown) (unknown) (no (unknown) (unknown) Creatinine 1.12 (units (unknown) date) H (0.52-1.04) unknown) mg/dL (unknown) (no (unknown) (unknown) : 1995 (units (unknown) date) Acct:[id number] unknown) (unknown) (no (unknown) (unknown) Departure (units ( own) date) unknown) (unknown) (no (unknown) (unknown) Discharge Plan (units (unknown) date) unknown) (unknown) (no (unknown) (unknown) Discontinued (units (u nown) date) Medications unknown) (unknown) (no (unknown) (unknown) ER Physician: (units ( unknown) date) Melissa Walker unknown) D.O. (unknown) (no (unknown) (unknown) EXTREMITIES: (units (u nknown) date) Normal range of unknown) motion, no clubbing or edema. Neurovascularly (unknown) (no (unknown) (unknown) Eos # (Auto) 600 (units (unknown) date) H (0-450) /uL unknown) (unknown) (no (unknown) (unknown) Eos % (Auto) 5.6 (units (unknown) date) H (2-4) % unknown) (unknown) (no (unknown) (unknown) Esterase (units (unkno wn) date) unknown) (unknown) (no (unknown) (unknown) Estimated GFR > (units (unknown) date) 60 (>60) mL/min unknown) (unknown) (no (unknown) (unknown) Exam (units (unkno wn) date) unknown) (unknown) (no (unknown) (unknown) Fioricet 1 tablet (units (unknown) date) every 4 hours if unknown) needed--> this can cause drowsiness please do (unknown) (no (unknown) (unknown) GASTROINTESTINAL: (units (unknown) date) Denies nausea, unknown) vomiting, abdominal pain, diarrhea, (unknown) (no (unknown) (unknown) GENERAL: Alert (units (unknown) date) 26-year-old female unknown) appears severely uncomfortable. (unknown) (no (unknown) (unknown) GENERAL: Denies (units (unknown) date) chills, fatigue, unknown) malaise, fever, sweats, travel (unknown) (no (unknown) (unknown) : Denies (units (unkn own) date) dysuria, unknown) frequency, incontinence, hematuria, urinary retention, flank (unknown) (no (unknown) (unknown) General (units (unkno wn) date) unknown) (unknown) (no (unknown) (unknown) GenericComposite[ (units (unknown) date) Plt Count 297 unknown) (150-400) X10^3/uL ] (unknown) (no (unknown) (unknown) GenericComposite[ (units (unknown) date) RBC 4.92 unknown) (4.0-5.2) X10^6/uL ] (unknown) (no (unknown) (unknown) GenericComposite[ (units (unknown) date) WBC 10.6 unknown) (4.5-11.0) X10^3/uL ] (unknown) (no (unknown) (unknown) Globulin 3.2 (units (unknown) date) (1.7-4.1) g/dL unknown) (unknown) (no (unknown) (unknown) Glucose 93 (units (u nknown) date) (70-100) mg/dL unknown) (unknown) (no (unknown) (unknown) HEENT: Denies (units ( unknown) date) sinus pain, ear unknown) pain, sore throat, difficulty swallowing, neck (unknown) (no (unknown) (unknown) HEENT: Head (units (un known) date) atraumatic,EOMI, unknown) pupils reactive, face symmetric, moist mucous (unknown) (no (unknown) (unknown) HPI - Headache (units (unknown) date) unknown) (unknown) (no (unknown) (unknown) HPI Narrative: (units (unknown) date) unknown) (unknown) (no (unknown) (unknown) Hct 40.1 (units (unkn own) date) (36-46) % unknown) (unknown) (no (unknown) (unknown) Hgb 13.4 (units (unkn own) date) (12.0-16.0) g/dL unknown) (unknown) (no (unknown) (unknown) History of (units (unk nown) date) Present Illness unknown) (unknown) (no (unknown) (unknown) 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 (unknown) (no (unknown) (unknown) Initial Vital (units ( unknown) date) Signs unknown) (unknown) (no (unknown) (unknown) Initial Vital (units ( unknown) date) Signs: unknown) (unknown) (no (unknown) (unknown) Instructions: DI (units (unknown) date) for Post-Spinal unknown) Puncture Headache (unknown) (no (unknown) (unknown) Holger Hartley MD (units (unknown) date) [Primary Care unknown) Provider] - (unknown) (no (unknown) (unknown) Ketorolac (units (unkn own) date) Tromethamine unknown) (Ketorolac 30 Mg/Ml Vial) 15 mg IV NOW ONE (unknown) (no (unknown) (unknown) Lab Data (units (unkno wn) date) unknown) (unknown) (no (unknown) (unknown) Labs: (units (unkno wn) date) unknown) (unknown) (no (unknown) (unknown) Lymph # (Auto) (units (unknown) date) 3500 ([id number]) unknown) /uL (unknown) (no (unknown) (unknown) Lymph % (Auto) (units (unknown) date) 33.0 (25-40) % unknown) (unknown) (no (unknown) (unknown) MCH 27.2 (units (unkn own) date) (26-34) PG unknown) (unknown) (no (unknown) (unknown) MCHC 33.3 (units (unk nown) date) (30-36) % unknown) (unknown) (no (unknown) (unknown) MCV 81.7 (units (unkn own) date) (80-100) fL unknown) (unknown) (no (unknown) (unknown) MDM - Headache (units (unknown) date) unknown) (unknown) (no (unknown) (unknown) MDM Narrative (units ( unknown) date) unknown) (unknown) (no (unknown) (unknown) MUSCULOSKELETAL: (units (unknown) date) Denies weakness, unknown) joint pain, or bony pain (unknown) (no (unknown) (unknown) Medical History (units (unknown) date) (Updated 02/22/22 unknown) @ 17:05 by Melissa Walker DO) (unknown) (no (unknown) (unknown) Medical decision (units (unknown) date) making narrative: unknown) (unknown) (no (unknown) (unknown) Migraine (units (unkno wn) date) unknown) (unknown) (no (unknown) (unknown) Beckham # (Auto) (units ( unknown) date) 1100 H (0-900) unknown) /uL (unknown) (no (unknown) (unknown) [place] % (Auto) (units ( unknown) date) 10.6 (3-14) % unknown) (unknown) (no (unknown) (unknown) Morphine Sulfate (units (unknown) date) (Morphine 4 Mg/Ml unknown) Inj) 4 mg IV NOW ONE (unknown) (no (unknown) (unknown) NEUROLOGIC: See (units (unknown) date) HPI unknown) (unknown) (no (unknown) (unknown) NEUROLOGICAL: (units (u nknown) date) Alert and oriented unknown) x4.Normal speech. Cranial nerves II through XII (unknown) (no (unknown) (unknown) Narrative: (units (unk nown) date) unknown) (unknown) (no (unknown) (unknown) Neut # (Auto) (units ( unknown) date) 5300 (2802-6672) unknown) /uL (unknown) (no (unknown) (unknown) Neut % (Auto) (units ( unknown) date) 50.0 (50-75) % unknown) (unknown) (no (unknown) (unknown) New (units (unkno wn) date) unknown) (unknown) (no (unknown) (unknown) No Action (units (unkn own) date) unknown) (unknown) (no (unknown) (unknown) No Known Drug (units ( unknown) date) Allergies Allergy unknown) Verified 02/22/22 12:47 (unknown) (no (unknown) (unknown) Ondansetron HCl (units (unknown) date) (Ondansetron 4 unknown) Mg/2 Ml Inj) 4 mg IV NOW ONE (unknown) (no (unknown) (unknown) Ordered: (units (unkno wn) date) unknown) (unknown) (no (unknown) (unknown) Orders (units (unkno wn) date) unknown) (unknown) (no (unknown) (unknown) PSYCHIATRIC: No (units (unknown) date) concerning unknown) psychosocial issues. (unknown) (no (unknown) (unknown) Papilloedema, (units ( unknown) date) unspecified unknown) (unknown) (no (unknown) (unknown) Patient (units (unkno wn) date) Disposition: Home unknown) (unknown) (no (unknown) (unknown) Patient History (units (unknown) date) unknown) (unknown) (no (unknown) (unknown) Patient is a (units (un known) date) 26-year-old female unknown) history of intracranial hypertension status post (unknown) (no (unknown) (unknown) Patient's (units (unkn own) date) symptoms are unknown) consistent with post lumbar puncture headache. It is (unknown) (no (unknown) (unknown) Patient: (units (unkno wn) date) Racheal Jerez unknown) MR#: [id number] (unknown) (no (unknown) (unknown) Potassium 3.8 (units (unknown) date) (3.4-5.1) mmol/L unknown) (unknown) (no (unknown) (unknown) Test (units (unknown) date) Results unknown) Negative (unknown) (no (unknown) (unknown) Prescriptions: (units (unknown) date) unknown) (unknown) (no (unknown) (unknown) Pulse Oximetry (units (unknown) date) unknown) (unknown) (no (unknown) (unknown) Pulse Oximetry (units (unknown) date) 100 99 unknown) (unknown) (no (unknown) (unknown) Pulse Oximetry (units (unknown) date) 100 unknown) (unknown) (no (unknown) (unknown) Pulse Oximetry (units (unknown) date) 100 99 100 unknown) (unknown) (no (unknown) (unknown) Pulse Oximetry 99 (units (unknown) date) unknown) (unknown) (no (unknown) (unknown) Pulse Rate (units (unk nown) date) unknown) (unknown) (no (unknown) (unknown) Pulse Rate 81 79 (units (unknown) date) unknown) (unknown) (no (unknown) (unknown) Pulse Rate 73 (units ( unknown) date) unknown) (unknown) (no (unknown) (unknown) Pulse Rate 74 (units ( unknown) date) unknown) (unknown) (no (unknown) (unknown) Pulse Rate 80 82 (units (unknown) date) 78 unknown) (unknown) (no (unknown) (unknown) RDW 14.8 (units (unkn own) date) (11.6-14.8) % unknown) (unknown) (no (unknown) (unknown) RESPIRATORY: (units (u nknown) date) Breath sounds unknown) equal bilaterally, no wheezes rales or rhonchi. (unknown) (no (unknown) (unknown) RESPIRATORY: (units (u nknown) date) Denies dyspnea, unknown) cough, wheezing, hemoptysis, sputum. (unknown) (no (unknown) (unknown) Referrals: (units (unk nown) date) unknown) (unknown) (no (unknown) (unknown) Related Data (units (u nknown) date) unknown) (unknown) (no (unknown) (unknown) Respiratory Rate (units (unknown) date) unknown) (unknown) (no (unknown) (unknown) Respiratory Rate (units (unknown) date) 16 unknown) (unknown) (no (unknown) (unknown) Respiratory Rate (units (unknown) date) 18 unknown) (unknown) (no (unknown) (unknown) Respiratory Rate (units (unknown) date) 16 unknown) (unknown) (no (unknown) (unknown) Result diagrams: (units (unknown) date) unknown) (unknown) (no (unknown) (unknown) Review of Systems (units (unknown) date) unknown) (unknown) (no (unknown) (unknown) SKIN: No rash, no (units (unknown) date) erythema, no unknown) pruritus (unknown) (no (unknown) (unknown) SKIN: Warm, dry, (units (unknown) date) no laceration, no unknown) petechiae, no rashes or lesions. (unknown) (no (unknown) (unknown) Signed By: (units (unk nown) date) unknown) (unknown) (no (unknown) (unknown) Smoking Status: (units (unknown) date) Never smoker unknown) (unknown) (no (unknown) (unknown) Smoking Status: (units (unknown) date) Never smoker unknown) (unknown) (no (unknown) (unknown) Snoring (units (unkno wn) date) unknown) (unknown) (no (unknown) (unknown) Social History (units (unknown) date) unknown) (unknown) (no (unknown) (unknown) Sodium 141 (units (u nknown) date) (137-145) mmol/L unknown) (unknown) (no (unknown) (unknown) Sodium Chloride (units (unknown) date) (Normal Saline unknown) 0.9%) 1,000 mls @ 1,000 mls/hr IV BOLUS ONE (unknown) (no (unknown) (unknown) Stand Alone (units (un known) date) Forms: Work unknown) Release Note (unknown) (no (unknown) (unknown) Stated Complaint: (units (unknown) date) lumbar procedure unknown) yesterday, now headache (unknown) (no (unknown) (unknown) Substance Use (units ( unknown) date) Type: does not use unknown) (unknown) (no (unknown) (unknown) Temperature (units (un known) date) unknown) (unknown) (no (unknown) (unknown) Temperature (units (un known) date) 97.9 F unknown) (unknown) (no (unknown) (unknown) Temperature 98.0 (units (unknown) date) F unknown) (unknown) (no (unknown) (unknown) Time Seen by (units (u nknown) date) Provider: 02/22/22 unknown) 12:46 (unknown) (no (unknown) (unknown) Total Bilirubin (units (unknown) date) 0.3 (0.2-1.3) unknown) mg/dL (unknown) (no (unknown) (unknown) Total Protein (units ( unknown) date) 7.7 (6.3-8.2) unknown) g/dL (unknown) (no (unknown) (unknown) Urine Specific (units (unknown) date) [place] 1.015 unknown) (unknown) (no (unknown) (unknown) Vital Signs (units (un known) date) unknown) (unknown) (no (unknown) (unknown) Vital signs: (units (u nknown) date) unknown) (unknown) (no (unknown) (unknown) [Embedded Image (units (unknown) date) Not Available] unknown) (unknown) (no (unknown) (unknown) acetazolamide 250 (units (unknown) date) mg tablet 1,250 mg unknown) PO BID 02/22/22 02/22/22 (unknown) (no (unknown) (unknown) alcohol intake (units (unknown) date) frequency: 0-2 unknown) drinks per day (unknown) (no (unknown) (unknown) and Zofran but (units (unknown) date) not quite better. unknown) She is given a dose of Fioricet and morphine. (unknown) (no (unknown) (unknown) bladder habits. (units (unknown) date) She has not had unknown) any fever or chills. (unknown) (no (unknown) (unknown) butalbital-acetam (units (unknown) date) inophen-caffeine 1 unknown) cap PO Q8H PRN #14 cap 02/22/22 (unknown) (no (unknown) (unknown) constipation, (units ( unknown) date) melena. unknown) (unknown) (no (unknown) (unknown) definitely worse (units (unknown) date) with position. unknown) She has no lower extremity weakness or cauda (unknown) (no (unknown) (unknown) each PO NOW ONE (units (unknown) date) unknown) (unknown) (no (unknown) (unknown) equina syndrome. (units (unknown) date) She is feeling unknown) better after 2 L of family along with Toradol (unknown) (no (unknown) (unknown) grossly intact. (units (unknown) date) Sensation in lower unknown) extremities intact moving all extremities. (unknown) (no (unknown) (unknown) guarding or (units (un known) date) rebound. unknown) (unknown) (no (unknown) (unknown) intact (units (unkno wn) date) unknown) (unknown) (no (unknown) (unknown) lumbar puncture (units (unknown) date) yesterday. She unknown) said this is the 2nd lumbar puncture she had 4 (unknown) (no (unknown) (unknown) membranes (units (unkn own) date) unknown) (unknown) (no (unknown) (unknown) much more (units (unkn own) date) manageable than unknown) what it was. Overall feeling better. (unknown) (no (unknown) (unknown) needed (units (unkno wn) date) unknown) (unknown) (no (unknown) (unknown) nortriptyline 10 (units (unknown) date) mg capsule See Rx unknown) Instructions .ROUTE .COMPLEX 02/22/22 (unknown) (no (unknown) (unknown) numbness tingling (units (unknown) date) or weakness in her unknown) lower extremities. No changes in bowel or (unknown) (no (unknown) (unknown) pain (units (unkno wn) date) unknown) (unknown) (no (unknown) (unknown) pain. (units (unkno wn) date) unknown) (unknown) (no (unknown) (unknown) rizatriptan 10 mg (units (unknown) date) tablet 10 mg PO unknown) Q2-4H PRN 02/22/22 02/22/22 (unknown) (no (unknown) (unknown) this is a. She (units (unknown) date) said the 1st when unknown) she did not have any complications. However (unknown) (no (unknown) (unknown) today she (units (unkn own) date) presents with unknown) severe headache. It is better when she lies flat and (unknown) (no (unknown) (unknown) worse whenever (units (unknown) date) she stands or unknown) sits. She feels extremely nauseous. She has no Social History date description facility (no date) Never smoked tobacco ([facility] Vital Signs date measurement value units +0000 BMI BMI 32.5 kg/m2 [id number]+0000 BP_diastolic BP_diastolic 76 mm[H g] [id number]+0000 BP_systolic BP_systolic 130 mm[Hg] [id number]+0000 heart_rate heart_rate 73 /min [id number]+0000 height_metric height_metric 170.18 cm [id number]+0000 height_standard height_standard 67 in [id number]+0000 respiration_rate respiration_rate 16 /min [id number]+0000 temperature_metric temperature_metric 36.67 C [id number]+0000 temperature_standard temperature_standard 9 8 F [id number]+0000 weight_metric weight_metric 94.34 kg [id number]+0000 weight_standard weight_standard 207.98 lb
[2022-05-07 09:54] LABS: ALBUMIN/GLOBULIN RATIO 1.1 (1.0-2.2); BILIRUBIN,TOTAL 0.3 mg/dL (0.2-1.0); CALCIUM 9.3 mg/dL (8.5-10.3); POTASSIUM 3.5 mmol/L (3.5-5.0); TOTAL PROTEIN 7.5 g/dL (6.7-8.2)
--- NOTE | 2022-05-07 10:08 | XRAY Report ---
PROCEDURE: Knee 4 View LT INDICATIONS: Trauma TECHNIQUE: 4 views of the left knee(s) were acquired. COMPARISON: None. FINDINGS: Bones: No fractures or dislocations. No suspicious bony lesions. Soft tissues: No joint effusion. No suspicious soft tissue calcifications. No significant soft tis vernell swelling. IMPRESSION: Unremarkable knee radiographs. Reviewed by: Micah Mederos DO on 05/07/2022 9:06 AM RON Approved by: Micah Mederos DO on 05/07/2022 9:06 AM RON Station ID: [id number]
--- NOTE | 2022-05-07 12:04 | Ultrasound Report ---
PROCEDURE: OB First Trimester INDICATIONS: spotting x 1 day OUTSIDE/PRIOR DATING DATA: Last menstrual period (LMP): 02/26/2022. LMP-based estimated date of delivery (DAVID): 12/03/2022. First dating scan (date and location): Today. Estimated date of delivery (DAVID) from first dating scan: 12/08/2022. TECHNIQUE: Real-time scanning was performed of the fetus and maternal pelvic organs, with image documentation. COMPARISON: None FINDINGS: Single living intrauterine with gestational sac and fetus. Cervix appears closed . Embryo: Cliff-rump length measuring 2.5 cm corresponding to 9 weeks 2 days. There are 2 small region s of subchorionic hemorrhage with the total volume encompassing less than 25% of the gestational sac. Heart rate: 155 Measurement variability in dating: +/- 4 weeks by LMP, +/- 7 days by mean sac diameter (use before 6 weeks gestation if crown-rump length not able to be measured), +/- 5 days by crown-rump length (6-12 weeks gestation). Maternal organs: Ovaries are normal in size and appearance.. IMPRESSION: Single living intrauterine with heart rate of 150 bpm. Estimated gestational age on rciha arguello's ultrasound is 9 weeks 2 days with estimated date of delivery of 12/08/2022. Small subchorionic hemorrhages noted adjacently, a common finding in the first trimester. Reviewed by: Micah Mederos DO on 05/07/2022 11:03 AM RON Approved by: Micah Mederos DO on 05/07/2022 11:03 AM RON Station ID: [id number]
--- NOTE | 2022-05-07 12:08 | ED Physician Documentation ---
PD HPI FEMALE - Stated complaint Stated Complaint: LT KNEE PAIN/PG & SPOTTING - Chief complaint Chief Complaint: Abd Pain - Additional information Additional information: Patient is 26-year-old female presenting to the emergency department with left knee pain and vaginal spotting. , reports first trimester with scant vaginal spotting that began earlier. Also reports tripped while wearing flip-flops and has been having left knee pain and swelling since that time. Review of Systems Unable to obtain: Unresponsive Ten Systems: 10 systems reviewed and negative Constitutional: denies: Fever, Myalgias Eyes: denies: Loss of vision Ears: denies: Loss of hearing Nose: denies: Rhinorrhea / runny nose Throat: denies: Dental pain / toothache Cardiac: denies: Chest pain / pressure Respiratory: denies: Dyspnea GI: denies: Abdominal Pain, Nausea, Vomiting : reports: Vaginal bleeding. denies: Dysuria Skin: denies: Rash PD PAST MEDICAL HISTORY - Past Medical History Cardiovascular: None Respiratory: Other Neuro: Migraines, Other Endocrine/Autoimmune: None GI: None SACK MAKER: None : None HEENT: None Psych: None Musculoskeletal: None Derm: Psoriasis - Past Surgical History Past Surgical History: Yes HEENT: Tonsil/Adenoidectomy - Present Medications Home Medications: Ambulatory Orders Medication Instructions Recorded Confirmed Albuterol Sulfate [Proair Hfa 1 - 2 puffs INH Q4H PRN 09/27/21 01/31/22 Inhaler] acetaZOLAMIDE [Diamox] 750 mg PO BID 01/31/22 01/31/22 - Allergies Allergies/Adverse Reactions: Allergies Allergy/AdvReac Type Severity Reaction Status Date / Time No Known Drug Allergies Allergy Verified 05/07/22 09:11 - Social History Does the pt smoke?: No Smoking Status: Never smoker Does the pt drink ETOH?: Yes Does the pt have substance abuse?: No - Immunizations Immunizations are current?: Yes PD ED PE NORMAL - General General: Alert and oriented X 3 - HEENT HEENT: Atraumatic - Neck Neck: Supple, no meningeal sign - Cardiac Cardiac: RRR - Respiratory Respiratory: No respiratory distress - Female Female : Deferred - Rectal Rectal: Deferred - Extremities Extremities: Other (There is moderate soft tissue swelling associated with the left knee. There is an appropriate range of motion. Nothing to suggest septic arthritis or active infection. Negative anterior drawer, negative posterior drawer, negative for valgus or valgus instability. Popliteal pulses palpable.) Results - Vitals Vitals: Vital Signs - 24 hr 05/07/22 05/07/22 09:07 13:42 Temperature 36.7 C 97.3 C H Heart Rate 87 70 Respiratory 16 14 Rate Blood Pressure 142/77 H 115/73 O2 Saturation 99 100 Oxygen O2 Source Room air - Labs Labs: Laboratory Tests 05/07/22 05/07/22 05/07/22 09:29 09:29 09:29 WBC 10.5 RBC 4.78 Hgb 13.3 Hct 40.9 MCV 85.6 MCH 27.8 MCHC 32.5 RDW 13.5 Plt Count 309 MPV 8.9 Neut # (Auto) 6.7 H Lymph # (Auto) 2.7 [place] # (Auto) 0.7 Eos # (Auto) 0.2 Baso # (Auto) 0.1 Absolute Nucleated RBC 0.00 Nucleated RBC % 0.0 Sodium 135 Potassium 3.5 Chloride 106 Carbon Dioxide 19 L Anion Gap 10.0 BUN 14 Creatinine 1.0 Estimated GFR (MDRD) 80 L Glucose 104 H Calcium 9.3 Total Bilirubin 0.3 AST 15 ALT 13 Alkaline Phosphatase 38 L Total Protein 7.5 Albumin 4.0 Globulin 3.5 Albumin/Globulin Ratio 1.1 Lipase 30 HCG, Quant 619577.00 PD MEDICAL DECISION MAKING - ED course Complexity details: reviewed results, d/w patient ED course: Patient comes to the emergency department for knee pain after a fall as well as vaginal spotting in setting of first trimester . Afebrile, hematoma stable on arrival to the emergency department. No joint instability to the left knee, negative X-rays and no indications of septic arthritis. Patient reports that she is rhesus antigen positive. Ultrasonography demonstrated an intrauterine approximately 9 weeks and 2 days in gestation as well as some small areas of chorionic bleeding. Patient does report that she is currently following with CL[facility]SRO[facility] MONITOR. Will discharge at this time with knee immobilizer, crutches, with instructions for the use of ice, elevation and acetaminophen for pain control. Final clinical impression, knee injury, first trimester Vaginal bleeding. Departure - Departure Disposition: 01 Home, Self Care Clinical Impression: Vaginal bleeding affecting early , Knee injury Instructions: ED Sprain Knee, Bleeding Early Preg Comments: Thank you for allowing us to care for you today at [facility]. In the emergency department today you were evaluated for any possible life- threatening medical emergency. The x-rays of your knee did not show any acute fracture. The ultrasonography performed today did show a live intrauterine with estimated gestational age of 9 weeks and 2 days. You did have some small areas of bleeding known as a chorionic hemorrhage. Please follow-up with your CL[facility]SROOM MONITOR carefully concerning these findings. They do increase your risk for spontaneous abortus see in the next few weeks. Please continue to use the crutches and knee immobilizer here in the emergency department as needed for pain control. I recommend regular ice packs, elevation and acetaminophen for pain control. Please abstain from nonsteroidal anti- inflammatory medication such as ibuprofen or naproxen. Please follow-up with your primary care doctor concerning your knee. If it anytime you develop any new or worsening symptoms please not hesitate to return to the emergency department.
[2022-05-07 13:42] VITALS: BP 115/73
[2022-05-07] MEDS ORDERED: ACETAMINOPHEN 325 MG TABLET PO STA (14:05)
== END 2022-05-07 14:40 | disposition home or self-care (01) ==
LOC: ED 08:42
DX: O20.9 Hemorrhage in early pregnancy, unspecified (principal); O99.891 Other specified diseases and conditions complicating pregnancy; M25.562 Pain in left knee; Z3A.09 9 weeks gestation of pregnancy
CPT/HCPCS: 36415; 73564; 76801; 80053; 83690; 84702; 85025; 99282; 99284; A9270